=== PATIENT | female | born 1985 | race Two or more races ===

== ENCOUNTER 2024-08-13 10:17 | Outpatient (AMB) | payer OTHER, SELFPAY ==
--- NOTE | 2024-08-13 10:25 | MHC.OFFWIV ---
Intake Vital Signs 08/13/24 10:30 Height 5 ft 5 in Weight 185 lb 8 oz BMI 30.9 BP 138/78 Blood Pressure Location Rt brachial Position Sitting Respiration 14 Pulse 61 Pulse Source Pulse Oximeter Pulse Oximetry (%) 100 Oxygen Delivery Method Room Air Intake Visit Reasons: Pain all over the left side of body Intake Note: Patient complaining of pain on left side of the body and pin and needles all over left side, patient also complaining of the pain radiating to the back Nursing Educator Required: No Allergies No Known Allergies Allergy (Verified 08/13/24 10:50) Medication List - Last Reconciled 08/13/24 by DI Coleman No Known Home Meds Do you need a note to return to daycare/school/sports/work: No HPI HPI Comments History of Present Illness Details History of Present Illness The patient is a 39-year-old female presenting with left-sided body pain, described as pins and needles, accompanied by back pain. The symptoms began approximately four days prior to the visit with no identifiable incident or trauma. The pain is primarily on the left side, spreading to the upper body and sometimes affecting the arm, extending to the face and left lower back. The pain occurs intermittently and tends to start after activities such as waking up and moving around. The patient reports no prior injuries, accidents, or recent illnesses preceding the onset of pain. She has not taken any medication for these symptoms apart from Tylenol, which has not alleviated the discomfort. There is no reported smoking, use of control, recent travel, or exposure to ticks or insects. The patient lacks a primary care provider and has been without one for an extended period. Exam Awake alert NAD PERRLA, EOMI Neurovasc intact No spinal or paraspinal tenderness Pain w/ palp over L anterior chest proximal to axilla Left arm neurovasc intact Plan - Order x-rays for the chest, neck, and low back to investigate potential musculoskeletal causes for the symptoms. - Establish care with a primary care provider within two weeks for further evaluation and management. - Provide patient with instructions for obtaining outpatient x-rays and ensure records are available at the follow-up appointment. Will call w xray results and RX meds as appropriate Patient was informed and verbally consented to the use of an ambient scribe for clinic note documentation during this visit. This note is constructed using voice recognition software. While every effort has been made to ensure accuracy in distribution clerk, still errors may have been included Sometimes, these errors may affect the content or meaning of the given sentence . Total time spent caring for the patient today was 30 minutes. This includes time spent before the visit reviewing the chart, time spent during the visit, and time spent after the visit on documentation Physical Exam Vital Signs: Last Vital Signs Pulse 61 08/13/24 10:30 Resp 14 08/13/24 10:30 BP 138/78 08/13/24 10:30 Pulse Ox 100 08/13/24 10:30 Oxygen Delivery Method Room Air 08/13/24 10:30 BMI result Body Mass Index 30.9 Assessment & Plan Assessment & Plan (1) Neck pain: Code(s): M54.2 - Cervicalgia (2) Arm paresthesia, left: Code(s): R20.2 - Paresthesia of skin (3) Costochondral chest pain: Code(s): R07.89 - Other chest pain (4) Low back pain: Code(s): M54.50 - Low back pain, unspecified Qualifiers: Chronicity: acute Back pain laterality: left Sciatica presence: without sciatica Qualified Code(s): M54.50 - Low back pain, unspecified Plan . Orders: Orders XR cervical spine 2V Today M54.2 - Cervicalgia, M54.50 - Low back pain, unspecified, R07.89 - Other chest pain, R20.2 - Paresthesia of skin XR chest 2V Today M54.2 - Cervicalgia, M54.50 - Low back pain, unspecified, R07.89 - Other chest pain, R20.2 - Paresthesia of skin Patient Instructions: [address] [place] [address] Outpatient Xray Coding Level of Care Code Est Pt Level 4 (94071) Diagnoses Neck pain M54.2 Arm paresthesia, left R20.2 Costochondral chest pain R07.89 Acute left-sided low back pain without sciatica M54.50 Chronicity: acute Back pain laterality: left Sciatica presence: without sciatica
[2024-08-13 10:30] VITALS: BP 138/78; PULSE 61; RESP 14; O2SAT 100; BMI 30.9
== END 2024-08-13 11:02 | disposition home or self-care (01) ==
PROVIDERS: PCP Family Medicine; Visit Provider Nurse Practitioner Family
DX: M54.2 Cervicalgia (principal); R20.2 Paresthesia of skin; R07.89 Other chest pain; M54.50 Low back pain, unspecified

== ENCOUNTER 2024-08-13 10:17 | Outpatient (REF) | payer OTHER, SELFPAY ==
--- NOTE | ~2024-08-13 | XR_ITS ---
Examination: Lumbar spine, cervical spine and chest x-ray. CLINICAL INDICATION: Low back pain, neck pain and chest pain. COMPARISON: None. FINDINGS: LUMBAR SPINE 3 VIEWS: There is maintained lumbar lordosis. The vertebral heights, alignment and disc heights are normal. No visible acute fracture, dislocation or subluxation seen. The SI joints are symmetrical and normal. The soft tissues are normal. CERVICAL SPINE 2 VIEWS: There is mild straightening of cervical lordosis. The vertebral heights, alignment and disc heights are normal. No visible acute fracture, dislocation or subluxation seen. The prevertebral and paravertebral soft tissues are normal. CHEST 2 VIEWS: The lungs are expanded and clear of acute pneumonic process. The heart size and pulmonary vascularity is normal. No gross bony abnormality seen. XR/XR lumbar spine 2-3V IMPRESSION: Unremarkable lumbar spine exam. Mild straightening of cervical lordosis likely spasm. Otherwise unremarkable cervical spine exam. Unremarkable chest exam. Electronically signed by: Aldair Lloyd MD 08/13/2024 12:34 PM [facility]
--- NOTE | ~2024-08-13 | XR_ITS ---
Examination: Lumbar spine, cervical spine and chest x-ray. CLINICAL INDICATION: Low back pain, neck pain and chest pain. COMPARISON: None. FINDINGS: LUMBAR SPINE 3 VIEWS: There is maintained lumbar lordosis. The vertebral heights, alignment and disc heights are normal. No visible acute fracture, dislocation or subluxation seen. The SI joints are symmetrical and normal. The soft tissues are normal. CERVICAL SPINE 2 VIEWS: There is mild straightening of cervical lordosis. The vertebral heights, alignment and disc heights are normal. No visible acute fracture, dislocation or subluxation seen. The prevertebral and paravertebral soft tissues are normal. CHEST 2 VIEWS: The lungs are expanded and clear of acute pneumonic process. The heart size and pulmonary vascularity is normal. No gross bony abnormality seen. XR/XR chest 2V IMPRESSION: Unremarkable lumbar spine exam. Mild straightening of cervical lordosis likely spasm. Otherwise unremarkable cervical spine exam. Unremarkable chest exam. Electronically signed by: Aldair Lloyd MD 08/13/2024 12:34 PM [facility]
--- NOTE | ~2024-08-13 | XR_ITS ---
Examination: Lumbar spine, cervical spine and chest x-ray. CLINICAL INDICATION: Low back pain, neck pain and chest pain. COMPARISON: None. FINDINGS: LUMBAR SPINE 3 VIEWS: There is maintained lumbar lordosis. The vertebral heights, alignment and disc heights are normal. No visible acute fracture, dislocation or subluxation seen. The SI joints are symmetrical and normal. The soft tissues are normal. CERVICAL SPINE 2 VIEWS: There is mild straightening of cervical lordosis. The vertebral heights, alignment and disc heights are normal. No visible acute fracture, dislocation or subluxation seen. The prevertebral and paravertebral soft tissues are normal. CHEST 2 VIEWS: The lungs are expanded and clear of acute pneumonic process. The heart size and pulmonary vascularity is normal. No gross bony abnormality seen. XR/XR cervical spine 2V IMPRESSION: Unremarkable lumbar spine exam. Mild straightening of cervical lordosis likely spasm. Otherwise unremarkable cervical spine exam. Unremarkable chest exam. Electronically signed by: Aldair Lloyd MD 08/13/2024 12:34 PM [facility]
== END 2024-08-13 10:18 | disposition home or self-care (01) ==
LOC: HO.HMGCX 10:17
PROVIDERS: PCP Family Medicine; Visit Provider Nurse Practitioner Family
DX: M54.50 Low back pain, unspecified (principal); M54.2 Cervicalgia; R20.2 Paresthesia of skin; R07.89 Other chest pain
CPT/HCPCS: 71046; 72040; 72100; 99212

== ENCOUNTER → 2024-08-13 11:48 | Outpatient (BNV) | payer OTHER, SELFPAY | PROVIDERS: PCP Family Medicine; Visit Provider Radiology Diagnostic Radiology | DX: M54.2 Cervicalgia (principal); M54.9 Dorsalgia, unspecified; R07.9 Chest pain, unspecified | CPT/HCPCS: 71046; 72040; 72100 ==

== ENCOUNTER 2024-08-23 11:04 | Outpatient (AMB) | payer OTHER, SELFPAY ==
--- NOTE | 2024-08-23 11:08 | MHC.PC.OV ---
Vital Signs 08/23/24 11:15 Height 5 ft 5 in Weight 186 lb 6 oz BMI 31.0 BP 135/79 Blood Pressure Location Rt brachial Position Sitting Respiration 16 Pulse 84 Pulse Source Pulse Oximeter Temp 98.1 F Temp Source Oral Pulse Oximetry (%) 99 Oxygen Delivery Method Room Air Intake Visit Reasons: est care/review workup for parasthesia Intake Note: patient here to establish care Health Care Legal Assistant Required: Yes Health Care Legal Assistant Language: Director Of Procurement Name: patient refused Accompanied by: daughter Is last menstrual period known: Yes Last menstrual period: 07/28/24 Post menopausal: No Patient : No Allergies No Known Allergies Allergy (Verified 08/23/24 11:11) Tobacco use date assessed: 08/23/24 Dental Screening Dental Screen Date: 08/23/24 Did you have a dental visit in the last 12 months?: No Did you have a dental problem in the last 6 months where you did not have access to dental care?: No Was dental information given to patient?: No HPI HPI Comments History of Present Illness Details This is a 39-year-old female with no significant past medical history presenting for re-evaluation of paresthesias. She is accompanied by her daughter. She declined an learning support specialist. They both prefer that her daughter interpret, but the patient speaks and understands a lot of Kiswahili. She presented to the walk-in clinic on 08/13/2024 with concerns of left-sided body pain described as pins and needles accompanied by back pain. The symptoms began approximately 4 days prior to the onset of that visit with no identifiable incident or trauma. Symptoms were described as primarily on the left side spreading to the upper body and sometimes affecting the head and face. The patient reported no prior injuries, accidents or recent illnesses preceding the onset of symptoms. She had not tried any medications for symptoms. She reported lacking primary care for an extended period of time before presenting for evaluation. She had x-rays of the chest, neck and lower back which were essentially unremarkable. Her symptoms are stable. She endorses again today paresthesias, numbness and discomfort in the left arm, left collarbone area and chest, left upper back, left lower back, left buttock and left upper thigh as well as the left side of the face and head. She also feels like her muscles are fatigued when she is trying to hold something out in front of her. She does not feel weak like she is going to drop something. She was put on a trial of diclofenac and Zanaflex which helped a little with the pain in her neck. She denies known family history of autoimmune disease. She does not take any supplements. She drinks alcohol socially. No illicit drug use or smoking. She has 2 dogs at home. No known tick bites. She has been under stress recently. 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 She has no exposure to toxins at work. ROS: Constitutional: No unexplained weight loss, fever, chills, fatigue or night sweats. Eyes: No vision changes, blurry vision, double vision, eye pain, eye redness, eye discharge. ENT: No hearing loss, sneezing, congestion, runny nose or sore throat. No sinus pain. Respiratory: No shortness of breath, cough or sputum production. Cardiovascular: No palpitations or pedal edema. No exertional chest pain. Gastrointestinal: No anorexia, nausea, vomiting or diarrhea. No abdominal pain or blood in stool. Genitourinary: No dysuria, hematuria, urinary frequency. Neurologic: No dizziness, syncope, unilateral weakness, ataxia. No syncopal episodes. No seizures or tremors. See HPI. Musculoskeletal: No joint swelling/ redness. Hematologic/Lymphatics: No bleeding or bruising. No painful lymph nodes. Skin: No rash or itching. Endocrine: No cold or heat intolerance. No polyuria or polydipsia. Psychiatric: No depression. Physical exam: Constitutional: Alert, in no distress. Head: Normocephalic. Eyes: Pupils are equal, round and reactive to light. Extraocular muscles intact. Ear, Nose and Throat: Canals clear. TMs normal. Normal nasal mucosa. No nasal discharge. No oral lesions. Neck: Supple, Full range of motion. No lymphadenopathy. No palpable thyroid masses. Respiratory: Clear to auscultation. Cardiovascular: S1 S2 regular. No murmurs. Gastrointestinal: Abdomen soft, non-tender, non-distended. Normal bowel sounds. No palpable masses. Neurologic:?Alert and oriented x 3, no focal deficits observed, CN 2-12 intact, [id number] normal, sensation equal and symmetric, strength UE and LE 5/5 bilaterally, reflexes equal and symmetric.? Normal gait.? Patient able to heel walk, toe walk and walk heel-to-toe across the floor.? No pronator drift.? Positive Romberg (patient swaying [id number]). Skin: No rashes or lesions. Musculoskeletal: No gross deformities. Normal range of motion. Extremities: Warm and well perfused. No clubbing, cyanosis or edema. 3+ peripheral pulses bilaterally. 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 1. Little interest or pleasure in doing things: not at all 2. Feeling down, depressed, or hopeless: not at all 3. Trouble falling or staying asleep, or sleeping too much: not at all 4. Feeling tired or having little energy: not at all 5. Poor appetite or overeating: not at all 6. Feeling bad about yourself - or that you are a failure or have let yourself or your family down: not at all 7. Trouble concentrating on things, such as reading the newspaper or watching television: not at all 8. Moving or speaking so slowly that other people could have noticed. Or the opposite - being so fidgety or restless that you have been moving around a lot more than usual: not at all 9. Thoughts that you would be better off or of hurting yourself in some way: not at all Total score: 0 Depression Screening Interpretation: Negative Depression Screening Done: Yes 41408 - PHQ-9 Billing: Yes Source: Developed by Drs. Terrance Newton, Adeline Park, Erick Ramírez and colleagues, with an educational gely from [employer]. Thrive Questionnaire Date Thrive assessed: 08/23/24 I am a: Patient What is your living situation today?: I have a steady place to live Within the past 12 months, did the food you bought not last and you didn't have the money to get more?: Never true Within the past 12 months, did you worry whether your food would run out before you got money to buy more?: Never true Do you have trouble paying for medicines?: No Do you have trouble getting transportation to medical appointments?: No Do you have trouble paying your heating and electricity bill?: No Do you have trouble taking care of your child, family member or friend?: No Do you have trouble with day-to-day activities such as bathing, preparing meals, shopping, managing finances, etc.?: No Are you currently unemployed and looking for a job?: No Are you interested in more education?: I choose not to answer this question Please select the resources that you would like help with: None Currently or been in a relationship where the following occur: No concerns reported THRIVE Score: 0 AUDIT C Alcohol Use Questionnaire (AUDIT-C) 1. How often do you have a drink containing alcohol?: 2-4 times a month 2. How many drinks containing alcohol do you have on a typical day when you are drinking?: 1 or 2 3. How often do you have six or more drinks on one occasion?: Never Total Score: 2 RADHA-7 AMB Questionnaire RADHA-7 Date RADHA - 7 assessed: 08/23/24 Feeling nervous, anxious, or on edge: 0 = Not at all Not being able to stop or control worryin = Not at all Worrying too much about different things: 1 = Several days Trouble relaxin = Not at all Being so restless that it is hard to sit still: 0 = Not at all Becoming easily annoyed or irritable: 0 = Not at all Feeling afraid as if something awful might happen: 0 = Not at all Total RADHA-7 score (0-4 normal; 5-9 mild; 10-14 moderate; 15-21 severe): 1 Source: Developed by Drs. Terrance Newton, Adeline Park, Erick Ramírez and colleagues, with an educational gely from [employer]. RADHA-7 Assessment Billing RADHA-7 Assessment Tool: RADHA-7 Assessment 62907 Physical exam (Primary Care) Vital Signs: Last Vital Signs Temp 98.1 F 08/23/24 11:15 Pulse 84 08/23/24 11:15 Resp 16 08/23/24 11:15 BP 135/79 08/23/24 11:15 Pulse Ox 99 08/23/24 11:15 Oxygen Delivery Method Room Air 08/23/24 11:15 BMI result Body Mass Index 31.0 Tobacco/Smoking Status: Tobacco use Status Tobacco use date assessed 08/23/24 08/23/24 11:14 Patient Tobacco Use Status Never used Tobacco 08/23/24 11:14 e-Cigarette/Vaping Use Never Used 08/23/24 11:14 PHQ-9: PHQ-9 Score PHQ-9: Total score 0 08/23/24 11:32 Depression Screening Interpretation: Negative Thrive Assessment: Date of Thrive Assessment Date Thrive assessed 08/23/24 08/23/24 11:14 Currently or been in a relationship where the following occur: No concerns reported Office Procedures EKG Details: EKG shows normal sinus rhythm, minimal voltage criteria for LVH versus normal variant, ventricular rate of 80 beats per minute. 09686-[id number], Complete Coding Level of Care Code Est Pt Level 5 (27454) Complex EM visit Add On G2211 Diagnoses Positive Romberg test R29.818 Numbness and tingling R20.0; R20.2 Chest discomfort R07.89 CPT Codes EKG - CPT: 52742-Xmejgtrqxmhgnblaz, Complete ([id number]) Additional Codes RADHA-7 Assessment Billing - RADHA-7 Assessment Tool: RADHA-7 Assessment 17156 ([id number]) PHQ-9 - 44368 - PHQ-9 Billing: Yes ([id number]) Time Spent (min) 50 Comment Chart review, direct patient care, completing documentation Assessment & Plan Assessment & Plan (1) Positive Romberg test: Code(s): R29.818 - Other symptoms and signs involving the nervous system Category: Medical (2) Numbness and tingling: Code(s): R20.0 - Anesthesia of skin; R20.2 - Paresthesia of skin Category: Medical (3) Chest discomfort: Code(s): R07.89 - Other chest pain Category: Medical Plan In summary this is a 39-year-old female presenting with ongoing left-sided paresthesias and numbness and discomfort without preceding incident or trauma. EKG done today due to chest discomfort. It is nonischemic. Symptoms are nonexertional, and she is not hypoxic. Further cardiac workup is deferred at this time given low likelihood of cardiac etiology based on presentation and diagnostics. Differential includes MS, brain tumor, Lyme disease, electrolyte disturbance, fibromyalgia. Less likely symptoms could be residual deficits from a CVA, but her neurologic exam is normal aside from the mildly positive Romberg. We will check an urgent MRI without and with contrast in addition to extensive labs which were ordered today. She will schedule a short term follow up appointment with me. Warning signs warranting ER evaluation reviewed with the patient and her daughter. Orders: Orders AMB EKG-In Office Today R07.89 - Other chest pain Comprehensive Met. Panel Today M54.50 - Low back pain, unspecified, R07.89 - Other chest pain, R20.0 - Anesthesia of skin, R20.2 - Paresthesia of skin Urine Culture Today M54.50 - Low back pain, unspecified, R07.89 - Other chest pain, R20.0 - Anesthesia of skin, R20.2 - Paresthesia of skin, R39.9 - Unspecified symptoms and signs involving the genitourinary system Vitamin B12 and Folate Today M54.50 - Low back pain, unspecified, R07.89 - Other chest pain, R20.0 - Anesthesia of skin, R20.2 - Paresthesia of skin Lyme IgG/IgM w/reflex to WB Today M54.50 - Low back pain, unspecified, R07.89 - Other chest pain, R20.0 - Anesthesia of skin, R20.2 - Paresthesia of skin ARNOL Reflex Titer and Pattern Today M54.50 - Low back pain, unspecified, R07.89 - Other chest pain, R20.0 - Anesthesia of skin, R20.2 - Paresthesia of skin MR head/brain wo/w con Today R20.0 - Anesthesia of skin, R20.2 - Paresthesia of skin, R29.818 - Other symptoms and signs involving the nervous system Complete Blood Count Auto Diff Today M54.50 - Low back pain, unspecified, R07.89 - Other chest pain, R20.0 - Anesthesia of skin, R20.2 - Paresthesia of skin TSH reflex Free T4 Today M54.50 - Low back pain, unspecified, R07.89 - Other chest pain, R20.0 - Anesthesia of skin, R20.2 - Paresthesia of skin UA w Microscopic Today M54.50 - Low back pain, unspecified, R07.89 - Other chest pain, R20.0 - Anesthesia of skin, R20.2 - Paresthesia of skin, R39.9 - Unspecified symptoms and signs involving the genitourinary system Magnesium Today M54.50 - Low back pain, unspecified, R07.89 - Other chest pain, R20.0 - Anesthesia of skin, R20.2 - Paresthesia of skin Erythrocyte Sedimentation Rate Today M54.50 - Low back pain, unspecified, R07.89 - Other chest pain, R20.0 - Anesthesia of skin, R20.2 - Paresthesia of skin Rheumatoid Factor Today M54.50 - Low back pain, unspecified, R07.89 - Other chest pain, R20.0 - Anesthesia of skin, R20.2 - Paresthesia of skin Vitamin D 1,25 dihydroxy Today M54.50 - Low back pain, unspecified, R07.89 - Other chest pain, R20.0 - Anesthesia of skin, R20.2 - Paresthesia of skin
[2024-08-23 11:15] VITALS: BP 135/79; PULSE 84; RESP 16; TEMP 36.7; O2SAT 99; BMI 31.0
== END 2024-08-23 12:28 | disposition home or self-care (01) ==
PROVIDERS: PCP Family Medicine; Visit Provider Physician Assistant Medical
DX: R29.818 Other symptoms and signs involving the nervous system (principal); R20.0 Anesthesia of skin; R20.2 Paresthesia of skin; R07.89 Other chest pain

== ENCOUNTER → 2024-08-23 11:04 | Outpatient (BNVA) | payer OTHER, SELFPAY | PROVIDERS: PCP Family Medicine; Visit Provider Physician Assistant Medical | DX: R20.0 Anesthesia of skin (principal); R20.2 Paresthesia of skin; R07.89 Other chest pain; R29.818 Other symptoms and signs involving the nervous system | CPT/HCPCS: 93005; 96127; 99212 ==

== ENCOUNTER 2024-08-23 12:50 | Outpatient (REF) | payer OTHER, SELFPAY ==
[2024-08-23 14:05] LABS: MANUAL DIFF FLAG NO
[2024-08-23 14:15] LABS: Basophils Percent Auto 0.6 % (0-2); Eosinophils Absolute Auto 0.1 X10*3/uL (0.0-0.4); Eosinophils Percent Auto 1.9 % (0-4); Hematocrit 37.7 % (37.0-47.0); Hemoglobin 12.4 g/dl (12.0-16.0); Imm Gran Abs Auto 0.01 X10*3/uL (0.00-0.03); Imm Gran Pct Auto 0.2 % (0.0-0.4); Lymphocytes Absolute Auto 1.8 X10*3/uL (1.2-4.9); Lymphocytes Percent Auto 28.4 % (20-40); Mean Corpuscular HGB Conc 32.9 g/dl (31.0-35.0); Mean Corpuscular Hemoglobin 29.7 pg (27.0-33.0); Mean Corpuscular Volume 90.2 fL (80.0-98.0); Mean Platelet Volume 10.4 fL (9.4-12.3); Monocytes Absolute Auto 0.7 X10*3/uL (0.1-1.2); Monocytes Percent Auto 11.1 % (2-11); Neutrophils Absolute Auto 3.6 x10*3/uL (2.0-8.3); Neutrophils Percent Auto 57.8 % (45-73); Platelet Count 332 X10*3/uL (160-400); Red Blood Count 4.18 X10*6/uL (4.20-5.50); Red Cell Distribution Width 14.4 % (11.0-16.0); White Blood Count 6.2 X10*3/uL (4.8-10.8)
[2024-08-23 14:24] LABS: Appearance Urine Cloudy; Color Urine Dark Yellow; Glucose Urine UA Negative (Negative); Leukocyte Esterase Urine Trace (Negative); Nitrite Urine Negative (Negative); PH 5.5 (5.0-9.0); Specific Gravity - Urine >= 1.030 (1.005-1.025); UMIC TRIGGER UA YES; Urine Blood Negative (Negative); Urine Ketones Negative (Negative); Urine Protein Negative (Neg-Trace)
[2024-08-23 14:36] LABS: Bacteria Urine 3+ (None Seen); Hyaline Casts Urine 0-2 /LPF (0-2); WBC Urine 0-5 /HPF (0-5)
[2024-08-23 14:44] LABS: Alanine Aminotransferase 20 U/L (0-31); Albumin Level 4.2 g/dL (3.5-5.0); Alkaline Phosphatase 62 U/L (39-117); Anion Gap 9 (12-20); Aspartate Amino Transferase 18 U/L (5-31); Bilirubin Total 0.5 mg/dL (0.0-1.0); Blood Urea Nitrogen 12 mg/dL (9-16); Calcium 9.5 mg/dL (8.4-10.2); Carbon Dioxide 25 mmol/L (22-29); Chloride 111 mmol/L (96-108); Estimated Glomerular Filt Rate > 60; Glucose Random 93 mg/dL (60-115); Magnesium 2.1 mg/dL (1.6-2.6); Potassium 3.7 mmol/L (3.3-5.1); Sodium 141 mmol/L (135-145); Total Protein 7.7 g/dL (6.5-8.0)
[2024-08-23 14:51] LABS: Erythrocyte Sedimentation Rate 12 MM/HR (0-20)
[2024-08-23 14:54] LABS: Rheumatoid Factor < 13.0 IU/mL (<15.0); TSH reflex Free T4 0.99 uIU/mL (0.32-4.0)
[2024-08-23 15:09] LABS: Folate 12.8 ng/mL (> or = 4.0); Vitamin B12 622 pg/mL (200-900)
[2024-08-24 18:13] LABS: Lyme Abs Screen <0.90 index
[2024-08-27 07:33] LABS: Anti Nuclear Antibody Screen NEGATIVE (NEGATIVE)
[2024-08-27 16:23] LABS: VITAMIN D (1,25 OH) D3 45 pg/mL; Vit D (1,25-Dihydroxy) Total 45 pg/mL (18-72); Vitamin D (1,25 OH) D2 <8 pg/mL
== END 2024-08-23 12:51 | disposition home or self-care (01) ==
LOC: HO.WFDLDS 12:50
PROVIDERS: Visit Provider Physician Assistant Medical
DX: R39.9 Unspecified symptoms and signs involving the genitourinary system (principal); R07.89 Other chest pain; M54.50 Low back pain, unspecified; R20.0 Anesthesia of skin; R20.2 Paresthesia of skin
CPT/HCPCS: 36415; 80053; 81001; 82607; 82652; 82746; 83735; 84443; 85025; 85652; 86038; 86431; 86617; 86618; 87086

== ENCOUNTER → 2024-09-24 15:07 | Outpatient (BNVA) | payer OTHER, SELFPAY | PROVIDERS: PCP Physician Assistant Medical; Visit Provider Physician Assistant Medical | DX: R20.2 Paresthesia of skin (principal); R20.0 Anesthesia of skin; R29.818 Other symptoms and signs involving the nervous system; R07.89 Other chest pain | CPT/HCPCS: 99212 ==

== ENCOUNTER → 2024-09-24 15:56 | Outpatient (AMB) | payer OTHER, SELFPAY ==
[2024-09-24 15:21] VITALS: BP 130/82; PULSE 83; O2SAT 98; BMI 31.2
--- NOTE | 2024-09-24 15:21 | MHC.PC.OV ---
Vital Signs 09/24/24 15:21 Height 5 ft 5 in Weight 187 lb 4 oz BMI 31.2 BP 130/82 Blood Pressure Location Rt brachial Position Sitting Pulse 83 Pulse Source Pulse Oximeter Pulse Oximetry (%) 98 Oxygen Delivery Method Room Air Intake Visit Reasons: follow up paresthesias Allergies No Known Allergies Allergy (Verified 09/24/24 15:27) Tobacco use date assessed: 09/24/24 Dental Screening Dental Screen Date: 09/24/24 Did you have a dental visit in the last 12 months?: Yes Did you have a dental problem in the last 6 months where you did not have access to dental care?: No Was dental information given to patient?: Patient has dentist HPI HPI Comments History of Present Illness Details This is a 39-year-old female with no significant past medical history presenting for re-evaluation of paresthesias. She is accompanied by her daughter. She declined an educational interpreter. They both prefer that her daughter interpret, but the patient speaks and understands a lot of Vietnamese. She presented to the walk-in clinic on 08/13/2024 with concerns of left-sided body pain described as pins and needles accompanied by back pain. The symptoms began approximately 4 days prior to the onset of that visit with no identifiable incident or trauma. Symptoms were described as primarily on the left side spreading to the upper body and sometimes affecting the head and face. The patient reported no prior injuries, accidents or recent illnesses preceding the onset of symptoms. She had not tried any medications for symptoms. She reported lacking primary care for an extended period of time before presenting for evaluation. She had x-rays of the chest, neck and lower back which were essentially unremarkable aside from mild straightening of the cervical lordosis. Her symptoms are stable. She endorses again today paresthesias, numbness and discomfort in the left arm, left collarbone area and chest, left upper back, left lower back, left buttock and left upper thigh as well as the left side of the face and head. She also feels like her muscles are fatigued when she is trying to hold something out in front of her. She does not feel weak like she is going to drop something. She was put on a trial of diclofenac and Zanaflex which helped a little with the pain in her neck. She denies known family history of autoimmune disease. She does not take any supplements. She drinks alcohol socially. No illicit drug use or smoking. She has 2 dogs at home. No known tick bites. She has been under stress recently. I asked if she has a history of anxiety or is talked to a therapist. Patient says she has gone through times where she has been very anxious and stressed. Patient says she does not believe in speaking with a therapist though she does consider that stress may be contributing to her symptoms. 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 She has no exposure to toxins at work. She has an MRI of the head with and without contrast scheduled at [facility] on 10/08/2024. On neurologic exam her Romberg test was mildly positive with swaying from side to side. EKG was nonischemic. Labs including CBC with differential, CMP, vitamin B12, vitamin-D, folic acid, TSH, rheumatoid factor, ARNOL and Lyme negative/normal. She had trace leuks and 3-5 red blood cells in her urine explained by having menses at that time. ROS: Constitutional: No unexplained weight loss, fever, chills, fatigue or night sweats. Eyes: No vision changes, blurry vision, double vision, eye pain, eye redness, eye discharge. ENT: No hearing loss, sneezing, congestion, runny nose or sore throat. No sinus pain. Respiratory: No shortness of breath, cough or sputum production. Cardiovascular: No palpitations or pedal edema. No exertional chest pain. Gastrointestinal: No anorexia, nausea, vomiting or diarrhea. No abdominal pain or blood in stool. Genitourinary: No dysuria, hematuria, urinary frequency. Neurologic: No dizziness, syncope, unilateral weakness, ataxia. No syncopal episodes. No seizures or tremors. See HPI. Musculoskeletal: No joint swelling/redness. Hematologic/Lymphatics: No bleeding or bruising. No painful lymph nodes. Skin: No rash or itching. Endocrine: No cold or heat intolerance. No polyuria or polydipsia. Psychiatric: No depression. Physical exam: Constitutional: Alert, in no distress. Head: Normocephalic. Neck: Supple, Full range of motion. No lymphadenopathy. No palpable thyroid masses. Respiratory: Clear to auscultation. Cardiovascular: S1 S2 regular. No murmurs. Musculoskeletal: No gross deformities. Normal range of motion. Strength 5/5 bilaterally. Extremities: Warm and well perfused. No clubbing, cyanosis or edema. 3+ peripheral pulses bilaterally. 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 [employer] Current occupational exposures/hazards: No Cognitive needs: No Hearing needs: No Vision needs: No Questionnaire Thrive Questionnaire Date Thrive assessed: 08/23/24 I am a: Patient What is your living situation today?: I have a steady place to live Within the past 12 months, did the food you bought not last and you didn't have the money to get more?: Never true Within the past 12 months, did you worry whether your food would run out before you got money to buy more?: Never true Do you have trouble paying for medicines?: No Do you have trouble getting transportation to medical appointments?: No Do you have trouble paying your heating and electricity bill?: No Do you have trouble taking care of your child, family member or friend?: No Do you have trouble with day-to-day activities such as bathing, preparing meals, shopping, managing finances, etc.?: No Are you currently unemployed and looking for a job?: No Are you interested in more education?: I choose not to answer this question Please select the resources that you would like help with: None Currently or been in a relationship where the following occur: No concerns reported THRIVE Score: 0 RADHA-7 AMB Questionnaire RADHA-7 Date RADHA - 7 assessed: 08/23/24 Source: Developed by Drs. Terrance Newton, Adeline Park, Erick Ramírez and colleagues, with an educational gely from [employer]. Physical exam (Primary Care) Vital Signs: Last Vital Signs Pulse 83 09/24/24 15:21 BP 130/82 09/24/24 15:21 Pulse Ox 98 09/24/24 15:21 Oxygen Delivery Method Room Air 09/24/24 15:21 BMI result Body Mass Index 31.2 Tobacco/Smoking Status: Tobacco use Status Tobacco use date assessed 09/24/24 09/24/24 15:28 Patient Tobacco Use Status Never used Tobacco 09/24/24 15:22 e-Cigarette/Vaping Use Never Used 09/24/24 15:22 Thrive Assessment: Date of Thrive Assessment Date Thrive assessed 08/23/24 09/24/24 15:22 Currently or been in a relationship where the following occur: No concerns reported Coding Level of Care Code Est Pt Level 4 (45422) Complex EM visit Add On G2211 Diagnoses Positive Romberg test R29.818 Numbness and tingling R20.0; R20.2 Chest discomfort R07.89 Assessment & Plan Assessment & Plan (1) Positive Romberg test: Code(s): R29.818 - Other symptoms and signs involving the nervous system Category: Medical (2) Numbness and tingling: Code(s): R20.0 - Anesthesia of skin; R20.2 - Paresthesia of skin Category: Medical (3) Chest discomfort: Code(s): R07.89 - Other chest pain Category: Medical Plan In summary this is a 39-year-old female presenting with ongoing left-sided paresthesias and numbness and discomfort without preceding incident or trauma. We discussed stress and anxiety could have a physical manifestation like this, but MS and brain tumor also considered. Less likely residual effects from a CVA. She does not have any progression of symptoms since her last visit. She will proceed with MRI of the head and brain with and without contrast that is scheduled this month. Follow up appointment is scheduled to review results. Warning signs warranting ER evaluation reviewed with the patient and her daughter. We discussed referral to Neurology pending results as well as referral to behavioral health services and/or trial of medication for anxiety.
== END | disposition home or self-care (01) ==
PROVIDERS: PCP Physician Assistant Medical; Visit Provider Physician Assistant Medical
DX: R29.818 Other symptoms and signs involving the nervous system (principal); R20.0 Anesthesia of skin; R20.2 Paresthesia of skin; R07.89 Other chest pain

== ENCOUNTER 2024-10-15 15:20 | Outpatient (AMB) | payer OTHER, SELFPAY ==
--- NOTE | 2024-10-15 15:49 | A.OFFPC_ITS ---
Vital Signs 10/15/24 15:52 Height 5 ft 5 in Weight 186 lb 4 oz BMI 31.0 BP 114/68 Blood Pressure Location Lt brachial Position Sitting Respiration 12 Pulse 81 Pulse Source Pulse Oximeter Pulse Oximetry (%) 97 Oxygen Delivery Method Room Air Intake Visit Reasons: review MRI result Intake Note: MRI results Black Oxide Coating Equipment Tender Required: No Black Oxide Coating Equipment Tender Name: Patient declined Accompanied by: Daughter Allergies No Known Allergies Allergy (Verified 10/15/24 15:51) Tobacco use date assessed: 10/15/24 Dental Screening Dental Screen Date: 09/24/24 HPI HPI Comments History of Present Illness Details This is a 39-year-old female with no significant past medical history presenting for re-evaluation of paresthesias. She is accompanied by her daughter. She declined an principal military analyst. They both prefer that her daughter interpret, but the patient speaks and understands a lot of Armenian. She presented to the walk-in clinic on 08/13/2024 with concerns of left-sided body pain described as pins and needles accompanied by back pain. The symptoms began approximately 4 days prior to the onset of that visit with no identifiable incident or trauma. Symptoms were described as primarily on the left side spreading to the upper body and sometimes affecting the head and face. The patient reported no prior injuries, accidents or recent illnesses preceding the onset of symptoms. She had not tried any medications for symptoms. She reported lacking primary care for an extended period of time before presenting for evaluation. She had x-rays of the chest, neck and lower back which were essentially unremarkable aside from mild straightening of the cervical lordosis. When I saw her she endorsed paresthesias, numbness and discomfort in the left arm, left collarbone area and chest, left upper back, left lower back, left buttock and left upper thigh as well as the left side of the face and head. She was put on a trial of diclofenac and Zanaflex which helped a little with the pain in her neck. She denies known family history of autoimmune disease. She does not take any supplements. She drinks alcohol socially. No illicit drug use or smoking. She has 2 dogs at home. No known tick bites. EKG was nonischemic. Labs including CBC with differential, CMP, vitamin B12, vitamin-D, folic acid, TSH, rheumatoid factor, ARNOL and Lyme negative/normal. She had trace leuks and 3-5 red blood cells in her urine explained by having menses at that time. She had an MRI of the brain without contrast on 10/08/2024 which demonstrated no acute abnormalities. There was polypoid mucosal thickening seen in the left maxillary sinus. The MRI was otherwise normal. We discussed the level of stress she has been under recently. She has endorsed anxiety. She told me that she did not believe in speaking with a therapist, but she has been considering this. She is changing her mind because her stress level decreased recently, and her symptoms are feeling better so now she thinks it may be related. She is still concerned about the symptoms in the left arm and chest. They are not exertional. She denies shortness of breath, dizziness, syncope. She is a nonsmoker. 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 She has no exposure to toxins at work. When I discussed the left maxillary sinus disease on her MRI they showed me a video of her snoring very loudly. Daughter says that she snores every day, and it wakes up everybody in the house. She does not endorse fatigue or non restorative sleep. ROS: Constitutional: No unexplained weight loss, fever, chills, fatigue or night sweats. Eyes: No vision changes, blurry vision, double vision, eye pain, eye redness, eye discharge. ENT: No hearing loss, sneezing, congestion, runny nose or sore throat. No sinus pain. Respiratory: No shortness of breath, cough or sputum production. Cardiovascular: No palpitations or pedal edema. No exertional chest pain. Gastrointestinal: No anorexia, nausea, vomiting or diarrhea. No abdominal pain or blood in stool. Genitourinary: No dysuria, hematuria, urinary frequency. Neurologic: No dizziness, syncope, unilateral weakness, ataxia. No syncopal episodes. No seizures or tremors. See HPI. Musculoskeletal: No joint swelling/redness. Hematologic/Lymphatics: No bleeding or bruising. No painful lymph nodes. Skin: No rash or itching. Endocrine: No cold or heat intolerance. No polyuria or polydipsia. Psychiatric: No depression. Physical exam: Constitutional: Alert, in no distress. Head: Normocephalic. ENT: Inferior turbinates 2+ bilaterally. No nasal discharge. Sinuses nontender. Canals clear. TMs summers and translucent. No oropharyngeal lesions or erythema. Neck: Supple, Full range of motion. No lymphadenopathy. No palpable thyroid masses. Respiratory: Clear to auscultation. Cardiovascular: S1 S2 regular. No murmurs. Musculoskeletal: No gross deformities. Normal range of motion. Strength 5/5 bilaterally. Extremities: Warm and well perfused. No clubbing, cyanosis or edema. 3+ peripheral pulses bilaterally. 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 [employer] Current occupational exposures/hazards: No Cognitive needs: No Hearing needs: No Vision needs: No Questionnaire Thrive Questionnaire Date Thrive assessed: 10/15/24 I am a: Patient What is your living situation today?: I have a steady place to live Within the past 12 months, did the food you bought not last and you didn't have the money to get more?: Never true Within the past 12 months, did you worry whether your food would run out before you got money to buy more?: Never true Do you have trouble paying for medicines?: No Do you have trouble getting transportation to medical appointments?: No Do you have trouble paying your heating and electricity bill?: No Do you have trouble taking care of your child, family member or friend?: No Do you have trouble with day-to-day activities such as bathing, preparing meals, shopping, managing finances, etc.?: No Are you currently unemployed and looking for a job?: No Are you interested in more education?: I choose not to answer this question Please select the resources that you would like help with: None Currently or been in a relationship where the following occur: No concerns reported THRIVE Score: 0 RADHA-7 AMB Questionnaire RADHA-7 Date RADHA - 7 assessed: 08/23/24 Source: Developed by Adeline Guardado.W. Xavier, Erick Ramírez and colleagues, with an educational gely from [employer]. Physical exam (Primary Care) Vital Signs: Last Vital Signs Pulse 81 10/15/24 15:52 Resp 12 10/15/24 15:52 BP 114/68 10/15/24 15:52 Pulse Ox 97 10/15/24 15:52 Oxygen Delivery Method Room Air 10/15/24 15:52 BMI result Body Mass Index 31.0 Tobacco/Smoking Status: Tobacco use Status Tobacco use date assessed 10/15/24 10/15/24 15:54 Patient Tobacco Use Status Never used Tobacco 10/15/24 15:54 e-Cigarette/Vaping Use Never Used 10/15/24 15:54 Thrive Assessment: Date of Thrive Assessment Date Thrive assessed 10/15/24 10/15/24 16:32 Currently or been in a relationship where the following occur: No concerns reported Coding Level of Care Code Est Pt Level 4 (41685) Complex EM visit Add On G2211 Diagnoses Positive Romberg test R29.818 Numbness and tingling R20.0; R20.2 Chest discomfort R07.89 Sinusitis J32.9 Snoring R06.83 Anxiety F41.9 Assessment & Plan Assessment & Plan (1) Positive Romberg test: Code(s): R29.818 - Other symptoms and signs involving the nervous system Category: Medical (2) Numbness and tingling: Code(s): R20.0 - Anesthesia of skin; R20.2 - Paresthesia of skin Category: Medical (3) Chest discomfort: Code(s): R07.89 - Other chest pain Category: Medical (4) Sinusitis: Code(s): J32.9 - Chronic sinusitis, unspecified Category: Medical (5) Snoring: Code(s): R06.83 - Snoring Category: Medical (6) Anxiety: Code(s): F41.9 - Anxiety disorder, unspecified Category: Medical Plan Her workup thus far has been reassuring. We reviewed her MRI results today. Given prior neurologic exam and symptoms I will refer to Neurology for further evaluation. She continues to endorse anxiety and stress, but she does not want to take medications for it. She is agreeable to a consult with the psychologist to discuss this. Referral placed. We discussed how anxiety and stress can have physical manifestations. We reviewed the importance of hydration, nutrition and adequate sleep. Her chest pain is atypical, but we will proceed with an echocardiogram and stress test out of an abundance of caution. Prior EKG was nonischemic. She will start Nasacort 2 sprays per nostril daily. She can try breathe right strips and avoid sleeping supine. Referred to ENT. Follow up in 10 weeks. Orders: Orders CA echo transthoracic complete 10/15/24 R07.9 - Chest pain, unspecified CA stress test 10/15/24 R07.9 - Chest pain, unspecified Referrals Psychology Referral F41.9 - Anxiety disorder, unspecified Ear/Nose/Throat Referral J32.9 - Chronic sinusitis, unspecified, R06.83 - Snoring Neurology Referral R20.0 - Anesthesia of skin, R20.2 - Paresthesia of skin, R29.818 - Other symptoms and signs involving the nervous system Medications: New triamcinolone acetonide (Nasacort) administer into each nostril 2 sprays intranasal DAILY 16.9 mL 5RF
[2024-10-15 15:52] VITALS: BP 114/68; PULSE 81; RESP 12; O2SAT 97; BMI 31.0
== END 2024-10-15 16:20 | disposition home or self-care (01) ==
PROVIDERS: PCP Physician Assistant Medical; Visit Provider Physician Assistant Medical
DX: R29.818 Other symptoms and signs involving the nervous system (principal); R20.0 Anesthesia of skin; R20.2 Paresthesia of skin; R07.89 Other chest pain; J32.9 Chronic sinusitis, unspecified; R06.83 Snoring; F41.9 Anxiety disorder, unspecified

== ENCOUNTER → 2024-10-15 15:20 | Outpatient (BNVA) | payer OTHER, SELFPAY | PROVIDERS: PCP Physician Assistant Medical; Visit Provider Physician Assistant Medical | DX: R20.0 Anesthesia of skin (principal); R20.2 Paresthesia of skin; R29.818 Other symptoms and signs involving the nervous system; R07.89 Other chest pain; J32.9 Chronic sinusitis, unspecified; R06.83 Snoring; F41.9 Anxiety disorder, unspecified | CPT/HCPCS: 99212 ==

== ENCOUNTER → 2024-11-01 09:00 | Outpatient (REF) | payer OTHER, SELFPAY ==
--- NOTE | 2024-11-01 09:02 | CA_ITS ---
Acquisition Time: 2024-11-01 10:20:19 Total Exercise Time: 00:06:35 Test Indications: CP Medications: SEE H&P Protocol: SAUD Max HR: 157 BPM 86% of Pred: 182 BPM Max BP: 132/82 mmHG Max Work Load: 7.9 METS Exercise Stress Test with exercise 6 mins 345 secs of Saud Protocol, achieving 87% MPHR, with reports of SOB, no chest pain, without any arrythmias, with normotensive response to exercise. Without EKG changes meeting criteria for ischemia. In recovery, breathing returned to baseline. Test reviewed with Dr. Bay. Referred By: Brittany Cole Electronically Signed By: Mark Roger
== END ==
LOC: HO.CARD 09:00
PROVIDERS: PCP Physician Assistant Medical; Visit Provider Physician Assistant Medical
DX: R07.9 Chest pain, unspecified (principal)
CPT/HCPCS: 93017; 93306

== ENCOUNTER → 2024-11-01 09:02 | Outpatient (BNV) | payer OTHER, SELFPAY | PROVIDERS: PCP Physician Assistant Medical | DX: R06.02 Shortness of breath (principal) | CPT/HCPCS: 93016; 93018; 93320; 93350 ==

== ENCOUNTER 2024-11-12 09:49 | Outpatient (AMB) | payer OTHER, SELFPAY ==
[2024-11-12 11:08] VITALS: BP 118/80; PULSE 75; O2SAT 100
--- NOTE | 2024-11-12 11:08 | AM.OFFWIN_ITS ---
Intake Vital Signs 11/12/24 11:08 Weight 188 lb BP 118/80 Blood Pressure Location Rt brachial Position Sitting Pulse 75 Pulse Source Pulse Oximeter Pulse Oximetry (%) 100 Oxygen Delivery Method Room Air Intake Visit Reasons: EP pain on LT back side Intake Note: Patient here for left lower back pain that started today after lifting something heavy. Patient Tobacco Use Status: Never used Tobacco Allergies No Known Allergies Allergy (Verified 11/12/24 11:09) Do you need a note to return to daycare/school/sports/work: Yes HPI HPI Comments History of Present Illness Details History of Present Illness - The patient is a 39-year-old female pr esenting with lower back pain x6 days, not getting better. - Symptoms commenced on Tuesday last k while at work. - The pain is localized to the lower jannette k into left buttock, described as throbbing and dull, without radiating to the extremities. - No history of associated trauma or sig nificant exertion, though the act of lifting a non-heavy object preceded the onset. - Previous management with NSAIDs and to pical patches has been ineffective. - The patient denied any numbness, tingl ing, or loss of bladder/bowel control. - The unchanging severity of discomfort prompted medical consultation. Physical Exam General: Cooperative, healthy appearing, comfortable, no acute distress and well developed Orientation: Patient oriented x3 Limitations: No limitations Head: Normal to inspection Ears: Hearing grossly normal bilaterally Nose: Normal External nose present Face and sinus: Normal facial exam Eyes: Appearance normal, both eyes and all related structures Neck: Normal visual inspection and Yes full ROM Respiratory: Normal respiratory effort and able to speak in complete sentences. Back/spine: no TTP thoracic or lumbar spine, ttp of lumbar left into left buttock Skin: No rashes or lesions noted Neuro: Patient oriented x3 Extremities: Normal to inspection [facility] Medical History (Updated 11/12/24 @ 11:27 by Zee Oquendo PA-C) Chest pain Anxiety Sinusitis Snoring Chest discomfort Positive Romberg test Numbness and tingling Asthma Family History Mother Asthma High blood pressure Diabetes Cancer Social History (Updated 10/15/24 @ 16:32 by Mary Fernandes CMA) Housing: Apartment Alcohol intake: current Patient Tobacco Use Status: Never used Tobacco e-Cigarette/Vaping Use: Never Used Second Hand Smoke Exposure: No service: No Current occupational status: employed 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 Current occupational exposures/hazards: No Cognitive needs: No Hearing needs: No Vision needs: No Review of Systems Const All systems reviewed & are unremarkable except as noted in HPI and below Physical Exam Vital Signs: Last Vital Signs Pulse 75 11/12/24 11:08 BP 118/80 11/12/24 11:08 Pulse Ox 100 11/12/24 11:08 Oxygen Delivery Method Room Air 11/12/24 11:08 Assessment & Plan Assessment & Plan (1) Lumbar sprain: Code(s): S33.5XXA - Sprain of ligaments of lumbar spine, initial encounter Qualifiers: Encounter type: initial encounter Qualified Code(s): S33.5XXA - Sprain of ligaments of lumbar spine, initial encounter Plan: The patient was diagnosed with a lumbar sprain and prescribed a course of oral prednisone, 40 mg daily for five days for anti-inflammatory purposes. I instructed her to take it in the morning to avoid sleep disruptions and advised against using additional NSAIDs like Aleve due to the risk of gastrointestinal bleeding. I recommended rest and limited physical activity to aid recovery, and provided a work note to excuse absence if needed. Instructed her on signs of complications, such as loss of bladder or bowel control, necessitating emergency care, emphasizing the need for prompt evaluation if such symptoms arise. Patient was informed and verbally consented to the use of an ambient scribe for clinic note documentation during this visit. Medications: New prednisone 40 mg (2 x 20 mg) PO QAM 10 tabs 0RF Coding Level of Care Code New Pt Level 3 (52443) Diagnoses Lumbar sprain, initial encounter S33.5XXA Encounter type: initial encounter
== END 2024-11-12 11:30 | disposition home or self-care (01) ==
PROVIDERS: PCP Physician Assistant Medical; Visit Provider Physician Assistant
DX: S33.5XXA Sprain of ligaments of lumbar spine, initial encounter (principal)

== ENCOUNTER → 2024-11-12 09:49 | Outpatient (BNVA) | payer OTHER, SELFPAY | PROVIDERS: PCP Physician Assistant Medical; Visit Provider Physician Assistant | DX: S33.5XXA Sprain of ligaments of lumbar spine, initial encounter (principal) | CPT/HCPCS: 99202 ==

== ENCOUNTER 2024-12-24 15:17 | Outpatient (AMB) | payer OTHER, SELFPAY ==
--- OUTSIDE RECORDS SUMMARY | 2024-12-24 15:22 | XMS_ITS | Encounter Summary ---
Author Organization [facility] Address [address] [place] [address] Care Team Providers Care Establishment Guide Name Role Phone Chris Zamarripa MD Primary Care Provider Ulisses Mullen MD Primary Care Provider Un available Encounter Details Date Type Department Care Team Description 06/30/2017 Release of Information Medical Records [address] [place] [address] Abstract, Provider Social History Tobacco Use Types Packs/Day Years Used Date Smoking Tobacco: Never Assessed Sex Assigned at Date Recorded Not on file documented as of this encounter Plan of Treatment Not on file documented as of this encounter Visit Diagnoses Not on filedocumented in this encounter Care Teams Establishment Guide Relationship Specialty Start Date End Date Chris Zamarripa MD PCP - General Internal Medicine 06/21/17 09/12/17 Ulisses Alvarez MD PCP - General Internal Medicine 09/13/17 documented as of this encounter
--- NOTE | 2024-12-24 15:27 | A.OFFPC_ITS ---
Vital Signs 12/24/24 15:32 Height 5 ft 5 in Weight 184 lb 4 oz BMI 30.7 BP 110/80 Blood Pressure Location Rt brachial Position Sitting Pulse 91 Pulse Source Pulse Oximeter Temp 98.6 F Temp Source Temporal Artery Scan Pulse Oximetry (%) 95 Oxygen Delivery Method Room Air Intake Visit Reasons: recheck pain/stress Intake Note: Tamia presents in the office today for a recheck of her pain/stress. Allergies No Known Allergies Allergy (Verified 12/24/24 15:29) Medication List - Last Reconciled 12/24/24 by JANES Young triamcinolone acetonide (Nasacort Allergy) 1 spray intranasal DAILY Tobacco use date assessed: 12/24/24 Dental Screening Dental Screen Date: 12/24/24 Did you have a dental visit in the last 12 months?: Yes Did you have a dental problem in the last 6 months where you did not have access to dental care?: No Was dental information given to patient?: Yes HPI HPI Comments History of Present Illness Details This is a 39-year-old female with no significant past medical history presenting for re-evaluation of paresthesias. She is accompanied by her daughter. 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 They both prefer that her daughter interpret, but the patient speaks and understands a lot of Nepali. She presented to the walk-in clinic on 08/13/2024 with concerns of left-sided body pain described as pins and needles accompanied by back pain. The symptoms began approximately 4 days prior to the onset of that visit with no identifiable incident or trauma. Symptoms were described as primarily on the left side spreading to the upper body and sometimes affecting the head and face. She had x-rays of the chest, neck and lower back which were essentially unremarkable aside from mild straightening of the cervical lordosis. When I saw her she endorsed paresthesias, numbness and discomfort in the left arm, left collarbone area and chest, left upper back, left lower back, left buttock and left upper thigh as well as the left side of the face and head. She was put on a trial of diclofenac and Zanaflex which helped a little with the pain in her neck. EKG was nonischemic. She had a normal echocardiogram and stress test. Labs including CBC with differential, CMP, vitamin B12, vitamin-D, folic acid, TSH, rheumatoid factor, ARNOL and Lyme negative/normal. She had trace leuks and 3-5 red blood cells in her urine explained by having menses at that time. She had an MRI of the brain without contrast on 10/08/2024 which demonstrated no acute abnormalities. There was polypoid mucosal thickening seen in the left maxillary sinus. The MRI was otherwise normal. She reported frequent snoring, and she was placed on Nasacort and refer to ENT. Then nasal spray has helped decrease snoring. Denies non restorative sleep and daytime fatigue. She is going to call ENT to schedule the appointment. We discussed her symptoms in the context of stress and anxiety. She endorses a lot of anxiety. She was referred to therapy, and she is still considering this. They did contact her to set up the appointment. She has been feeling better lately. Physically she says she feels fine now. All of the prior symptoms resolved. 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 She has no exposure to toxins at work. ROS: Constitutional: No unexplained weight loss, fever, chills, fatigue or night sweats. Eyes: No vision changes, blurry vision, double vision, eye pain, eye redness, eye discharge. ENT: No hearing loss, sneezing, congestion, runny nose or sore throat. No sinus pain. Respiratory: No shortness of breath, cough or sputum production. Cardiovascular: No chest pain, palpitations, pedal edema or exertional dyspnea. Gastrointestinal: No anorexia, nausea, vomiting or diarrhea. No abdominal pain or blood in stool. Genitourinary: No dysuria, hematuria, urinary frequency. Neurologic: No dizziness, syncope, unilateral weakness, ataxia, syncope, seizures, tremors, numbness, tingling. Musculoskeletal: No joint swelling/redness. Denies musculoskeletal pain. Hematologic/Lymphatics: No bleeding or bruising. No painful lymph nodes. Skin: No rash or itching. Endocrine: No cold or heat intolerance. No polyuria or polydipsia. Psychiatric: No depression. +anxiety Physical exam: Constitutional: Alert, in no distress. Head: Normocephalic. Neck: Supple, Full range of motion. No lymphadenopathy. No palpable thyroid masses. Respiratory: Clear to auscultation. Cardiovascular: S1 S2 regular. No murmurs. Musculoskeletal: No gross deformities. Normal range of motion. Strength 5/5 bilaterally. Extremities: Warm and well perfused. No clubbing, cyanosis or edema. 3+ peripheral pulses bilaterally. 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 Current occupational exposures/hazards: No Cognitive needs: No Hearing needs: No Vision needs: No Questionnaire PHQ-9 Over the last 2 weeks, how often have you been bothered by any of the following problems? 1. Little interest or pleasure in doing things: not at all 2. Feeling down, depressed, or hopeless: not at all 3. Trouble falling or staying asleep, or sleeping too much: not at all 4. Feeling tired or having little energy: several days 5. Poor appetite or overeating: not at all 6. Feeling bad about yourself - or that you are a failure or have let yourself or your family down: not at all 7. Trouble concentrating on things, such as reading the newspaper or watching television: not at all 8. Moving or speaking so slowly that other people could have noticed. Or the opposite - being so fidgety or restless that you have been moving around a lot more than usual: not at all 9. Thoughts that you would be better off or of hurting yourself in some way: not at all Total score: 1 Depression Screening Interpretation: Negative Depression Screening Done: Yes [id number] - PHQ-9 Billing: Patient declined-do not bill Source: Developed by Drs. Terrance Newton, Adeline Park, Erick Ramírez and colleagues, with an educational gely from [employer]. Thrive Questionnaire Date Thrive assessed: 12/24/24 I am a: Patient What is your living situation today?: I have a steady place to live Within the past 12 months, did the food you bought not last and you didn't have the money to get more?: Never true Within the past 12 months, did you worry whether your food would run out before you got money to buy more?: Never true Do you have trouble paying for medicines?: No Do you have trouble getting transportation to medical appointments?: No Do you have trouble paying your heating and electricity bill?: No Do you have trouble taking care of your child, family member or friend?: No Do you have trouble with day-to-day activities such as bathing, preparing meals, shopping, managing finances, etc.?: No Are you currently unemployed and looking for a job?: No Are you interested in more education?: I choose not to answer this question Please select the resources that you would like help with: None Currently or been in a relationship where the following occur: No concerns reported THRIVE Score: 0 AUDIT C Alcohol Use Questionnaire (AUDIT-C) 1. How often do you have a drink containing alcohol?: Monthly or less 2. How many drinks containing alcohol do you have on a typical day when you are drinking?: 1 or 2 3. How often do you have six or more drinks on one occasion?: Never Total Score: 1 Score Reviewed/Action Taken: No RADHA-7 AMB Questionnaire RADHA-7 Date RADHA - 7 assessed: 08/23/24 Source: Developed by Drs. Terrance Newton, Adeline Park, Erick Ramírez and colleagues, with an educational gely from [employer]. Physical exam (Primary Care) Vital Signs: Last Vital Signs Temp 98.6 F 12/24/24 15:32 Pulse 91 12/24/24 15:32 BP 110/80 12/24/24 15:32 Pulse Ox 95 12/24/24 15:32 Oxygen Delivery Method Room Air 12/24/24 15:32 BMI result Body Mass Index 30.7 Tobacco/Smoking Status: Tobacco use Status Tobacco use date assessed 12/24/24 12/24/24 15:30 Patient Tobacco Use Status Never used Tobacco 12/24/24 15:30 e-Cigarette/Vaping Use Never Used 12/24/24 15:30 PHQ-9: PHQ-9 Score PHQ-9: Total score 1 12/24/24 15:35 Depression Screening Interpretation: Negative Thrive Assessment: Date of Thrive Assessment Date Thrive assessed 12/24/24 12/24/24 15:30 Currently or been in a relationship where the following occur: No concerns reported Coding Level of Care Code Est Pt Level 4 (26023) Complex EM visit Add On G2211 Diagnoses Numbness and tingling R20.0; R20.2 Chest discomfort R07.89 Snoring R06.83 Anxiety F41.9 Assessment & Plan Assessment & Plan (1) Numbness and tingling: Code(s): R20.0 - Anesthesia of skin; R20.2 - Paresthesia of skin Category: Medical (2) Chest discomfort: Code(s): R07.89 - Other chest pain Category: Medical (3) Snoring: Code(s): R06.83 - Snoring Category: Medical (4) Anxiety: Code(s): F41.9 - Anxiety disorder, unspecified Category: Medical Plan Her workup was reassuring, and her symptoms subsequently resolved. I suspect this may have been due to stress and anxiety. She was contacted by behavioral health, and she will consider setting up an appointment for therapy. She is not interested in medication for anxiety. Patient also brings up that she tries to control what she eats because it makes her anxious that she could gain weight. She has actually lost weight since her visit in October. We reviewed nutrition today, and she agrees to referral to the dietitian. I strongly encouraged her to follow up with a therapist. She will continue Nasacort and try to avoid sleeping supine. She will call ENT to schedule the appointment. Follow up in 6 months for a physical exam or sooner as needed. Orders: Referrals Nutrition/Dietitian Referral E66.811 - Obesity, class 1 Medications: New triamcinolone acetonide (Nasacort Allergy) administer into each nostril 1 spray intranasal DAILY 16.9 mL 5RF
[2024-12-24 15:32] VITALS: BP 110/80; PULSE 91; TEMP 37; O2SAT 95; BMI 30.7
== END 2024-12-24 16:02 | disposition home or self-care (01) ==
LOC: HO.HMCFM 15:18
PROVIDERS: PCP Physician Assistant Medical; Visit Provider Physician Assistant Medical
DX: R20.0 Anesthesia of skin (principal); R20.2 Paresthesia of skin; R07.89 Other chest pain; R06.83 Snoring; F41.9 Anxiety disorder, unspecified

== ENCOUNTER → 2024-12-24 15:17 | Outpatient (BNVA) | payer OTHER, SELFPAY | PROVIDERS: PCP Physician Assistant Medical; Visit Provider Physician Assistant Medical | DX: R20.0 Anesthesia of skin (principal); R20.2 Paresthesia of skin; R07.89 Other chest pain; F41.9 Anxiety disorder, unspecified | CPT/HCPCS: 99212 ==

== ENCOUNTER 2025-02-13 09:36 | Outpatient (AMB) | payer OTHER, SELFPAY ==
--- NOTE | 2025-02-13 09:52 | MHC.AMNUTRGE ---
VS Expanded 02/13/25 09:54 02/13/25 10:07 Height 5 ft 5 in 5 ft 5 in Weight 185 lb 10.067 oz 186 lb BMI 30.9 30.9 Intake Visit Reasons: Obesity, class 1 Allergies No Known Allergies Allergy (Verified 12/24/24 15:29) Nutrition Presentation Details: PT presents for MNT for obesity food frequency fruits: 1/wk fish: 2x/wk milk: not including , cheese 1-2x/wk mvi: not taking Has 3 meals/day home made , choosing high protein foods vomiting /diarrhea: denies constipation: reports hx chronic constipation physical activity: currently increasing steps working on reaching [id number] steps/d etoh/smoking - denies DNR-Jldppct-Fv.Jeor Equation Height: 5 ft 5 in Weight: 186 lb Resting Metabolic Rate: 1526.75 Calculated Activity Level: Sedentary Calories Needed to Maintain Weight: 1832.10 Diagnosis Nutrition problem #1: overweight/obesity As related to (etiology) #1: diagnosis As evidenced by (sign/symptom) #1: high BMI (31 on 03/08) Monitoring/Goals Nutrition problem monitoring: level of knowledge/skill and oral fluids Nutrition goal/outcome: list 3 high fiber foods Learning/Education Stages of change: preparation [facility] Medical History (Updated 02/28/25 @ 11:13 by Tamy Liu, RD, LDN) Chest pain Anxiety Sinusitis Snoring Chest discomfort Positive Romberg test Numbness and tingling Asthma Family History Mother Asthma High blood pressure Diabetes Cancer Social History (Updated 12/24/24 @ 15:30 by Beth Schultz MA) Housing: Apartment Alcohol intake: current Patient Tobacco Use Status: Never used Tobacco e-Cigarette/Vaping Use: Never Used Second Hand Smoke Exposure: No service: No Current occupational status: employed 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 [employer] Current occupational exposures/hazards: No Cognitive needs: No Hearing needs: No Vision needs: No Assessment & Plan Assessment & Plan (1) Obesity (BMI 30.0-34.9): Code(s): E66.811 - Obesity, class 1 Category: Medical Plan: Wt: 85 Kg ( 03/08 ) Est kcal needs as per MSJ: 1800 (40% carb, 30% protein/fat) Est fluid needs as per 25-30 ml/d: 2600 Est prot per day as per 1 g/kg bw: 85 Recommend fiber intake : 8-10 g per day and gradually increase to 25-28 g per day for women and 35-38 g for men or as tolerated Recommend sodium intake per day : less than 2300 mg Educated patient on: ( R = reviewed V = verbalizes understanding N/R = needs review N/A = not applicable Food sources of carbohydrate, adequate serving sizes and its role in various health conditions: R Differences between complex carbohydrates a simple carbohydrates, role of fiber in diet: R Lean protein sources of foods: R Hydration: R Differences between types of fats and role in diet (mono on saturated fat fatty acids, saturated fatty acids, trans fats): R V N/R Food sources of sodium in salt and healthy modifications for heart health in kidney health: R V R/V Vitamins and minerals: R V N/R Healthy plate method concept: R V N/R Physical activity: Benefits a precaution: R V N/R Patient Instructions: Have 4-6 oz of prune juice daily work on having 3 balanced meals per day incorporating whole grain foods/fiber rich foods , total carb per meal less than 60 g following healthy plate method - see meal ideas Walk for relaxation ,goal 30-40 minutes at least 3 times a week discuss constipation with your primary physician for further evaluation Coding Level of Care Code Nutr Indiv Intake (77817) Diagnoses Obesity (BMI 30.0-34.9) E66.811 Time Spent (min) 30
[2025-02-13 09:54] VITALS: BMI 30.9
[2025-02-28 11:17] VITALS: BMI 30.9
== END 2025-02-13 10:27 | disposition home or self-care (01) ==
LOC: HO.ENCR 09:37
PROVIDERS: PCP Physician Assistant Medical; Visit Provider Dietitian, Registered
DX: E66.811 Obesity, class 1 (principal)

== ENCOUNTER → 2025-02-13 09:36 | Outpatient (BNVA) | payer OTHER, SELFPAY | PROVIDERS: PCP Physician Assistant Medical; Visit Provider Dietitian, Registered | DX: E66.811 Obesity, class 1 (principal); Z68.30 Body mass index [BMI] 30.0-30.9, adult | CPT/HCPCS: 97802 ==

== ENCOUNTER 2025-03-12 09:00 | Outpatient (AMB) | payer OTHER, SELFPAY ==
--- NOTE | 2025-03-12 09:02 | A.OFFPC_ITS ---
Vital Signs 3 03/12/25 09:05 Height 5 ft 5 in Weight 182 lb 8 oz BMI 30.4 BP 99/68 Blood Pressure Location Lt brachial Position Sitting Respiration 12 Pulse 68 Pulse Source Pulse Oximeter Temp 97.2 F Temp Source Oral Pulse Oximetry (%) 98 Oxygen Delivery Method Room Air Intake Visit Reasons: lump in breast, pt of DL Intake Note: Patient c/o right breast bump and painful notice it . Station Agent Required: No Allergies No Known Allergies Allergy (Verified 03/12/25 09:12) Medication List - Last Reconciled 03/12/25 by Vicki Juan, ASSIGNMENT DESK EDITOR- triamcinolone acetonide (Nasacort Allergy) 1 spray intranasal DAILY Tobacco use date assessed: 03/12/25 Dental Screening Dental Screen Date: 03/12/25 Did you have a dental visit in the last 12 months?: Yes Did you have a dental problem in the last 6 months where you did not have access to dental care?: No Was dental information given to patient?: Patient has dentist HPI HPI Comments 2 History of Present Illness0 Details History of Present Illness - The patient is a 39-year-old female wi th obesity and anxiety presenting with dtr today w/ a breast complaint. - Lump in right breast noted on Tuesday after feeling cramps in bilat breasts. - Initial lump size varies; initially la rger, currently smaller. - No pain currently present. - No drainage reported. - Family history negative for breast can cer. - Denies personal history of breast ca. Review of Systems - Breast: Reports lump in right breast, fluctuating size; denies drainage or discharge. - Denies fever, chills, systemic sx. - Admits anxiety about health. Discussion Notes I discussed with the patient a diagnostic mammogram for both breasts,along w/ US imaging. I explained the urgency of scheduling this diagnostic imaging and advised using the services of [facility] to expedite scheduling. I informed that the results would be communicated to both the patient and her primary care provider, JANES Emanuel. Assessment and Plan 1. Breast lump bilat - Dx Mammo bilat with LT US bilat - Monitor for changes; follow-up with pr [facility] care provider. - I will fu with her once results are ba ck. Patient Instructions - Schedule your diagnostic mammogram [facility] as soon as possible. - Attend the ultrasound appointment for further evaluation. - Monitor the lump for any changes in si ze or new symptoms. - Follow up with your primary care provi carlyn for results and next steps. Consent Patient was informed and verbally consented to the use of an ambient scribe for clinic note documentation during this visit. Total time spent caring for the patient today was 30 minutes. This includes time spent before the visit reviewing the chart, time spent during the visit, and time spent after the visit on documentation, reviewing laboratory results, diagnostic imaging, medications, performing a medically necessary evaluation, counseling on diagnoses, care coordination, ordering appropriate tests, ordering appropriate medications, review of tests performed by other providers, reporting test results with the patient, communication with other healthcare providers. 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 [employer] Current occupational exposures/hazards: No Cognitive needs: No Hearing needs: No Vision needs: No Questionnaire Thrive Questionnaire Date Thrive assessed: 08/23/24 I am a: Patient What is your living situation today?: I have a steady place to live Within the past 12 months, did the food you bought not last and you didn't have the money to get more?: Never true Within the past 12 months, did you worry whether your food would run out before you got money to buy more?: Never true Do you have trouble paying for medicines?: No Do you have trouble getting transportation to medical appointments?: No Do you have trouble paying your heating and electricity bill?: No Do you have trouble taking care of your child, family member or friend?: No Do you have trouble with day-to-day activities such as bathing, preparing meals, shopping, managing finances, etc.?: No Are you currently unemployed and looking for a job?: No Are you interested in more education?: I choose not to answer this question Please select the resources that you would like help with: None Currently or been in a relationship where the following occur: No concerns reported THRIVE Score: 0 RAHDA-7 AMB Questionnaire RADHA-7 Date RADHA - 7 assessed: 08/23/24 Source: Developed by Drs. Terrance Newton, Adeline Park, Erick Ramírez and colleagues, with an educational gely from [employer]. Physical exam (Primary Care) Vital Signs: Last Vital Signs Temp 97.2 F 03/12/25 09:05 Pulse 68 03/12/25 09:05 Resp 12 03/12/25 09:05 BP 99/68 03/12/25 09:05 Pulse Ox 98 03/12/25 09:05 Oxygen Delivery Method Room Air 03/12/25 09:05 BMI result Body Mass Index 30.4 BMI Assessment/Plan discussion: High BMI High, discussed plan: lifestyle Tobacco/Smoking Status: Tobacco use Status Tobacco use date assessed 03/12/25 03/12/25 09:07 Patient Tobacco Use Status Never used Tobacco 03/12/25 09:07 e-Cigarette/Vaping Use Never Used 03/12/25 09:07 Thrive Assessment: Date of Thrive Assessment Date Thrive assessed 08/23/24 03/12/25 09:07 Currently or been in a relationship where the following occur: No concerns reported Chest Chest/axillae images: 2 1. RIGHT LIQ 5OCLOCK PROXIMAL TO AREOLA IS A PALPABLE LUMP, ? FIBROGLANDULAR TISSUE SKIN NORMAL,NIPPLE NORMAL 2. LEFT LIQ 7OCLOCK PROXIMAL TO AREOLA IS A FIRM PALPABLE LUMP SKIN NORMAL, NIPPLE NORMAL Coding Level of Care Code Est Pt Level 4 (98397) Complex EM visit Add On G2211 Diagnoses Bilateral breast lump N63.10; N63.20 Obesity (BMI 30.0-34.9) E66.811 Anxiety F41.9 Assessment & Plan Assessment & Plan (1) Bilateral breast lump: Code(s): N63.10 - Unspecified lump in the right breast, unspecified quadrant; N63.20 - Unspecified lump in the left breast, unspecified quadrant Category: Medical (2) Obesity (BMI 30.0-34.9): Code(s): E66.811 - Obesity, class 1 Category: Medical (3) Anxiety: Code(s): F41.9 - Anxiety disorder, unspecified Category: Medical Plan . Orders: Orders 2 MM diagnostic mammo BI Today N63.10 - Unspecified lump in the right breast, unspecified quadrant, N63.20 - Unspecified lump in the left breast, unspecified quadrant US breast LT limited Today N63.10 - Unspecified lump in the right breast, unspecified quadrant, N63.20 - Unspecified lump in the left breast, unspecified quadrant US breast RT limited Today N63.10 - Unspecified lump in the right breast, unspecified quadrant, N63.20 - Unspecified lump in the left breast, unspecified quadrant
[2025-03-12 09:05] VITALS: BP 99/68; PULSE 68; RESP 12; TEMP 36.2; O2SAT 98; BMI 30.4
== END 2025-03-12 09:23 | disposition home or self-care (01) ==
LOC: HO.HMCFM 09:01
PROVIDERS: PCP Physician Assistant Medical; Visit Provider Nurse Practitioner Family
DX: N63.14 Unspecified lump in the right breast, lower inner quadrant (principal); N63.24 Unspecified lump in the left breast, lower inner quadrant; E66.811 Obesity, class 1; Z68.30 Body mass index [BMI] 30.0-30.9, adult; F41.9 Anxiety disorder, unspecified

== ENCOUNTER → 2025-03-12 09:00 | Outpatient (BNVA) | payer OTHER, SELFPAY | PROVIDERS: PCP Physician Assistant Medical; Visit Provider Nurse Practitioner Family | DX: N63.14 Unspecified lump in the right breast, lower inner quadrant (principal); N63.24 Unspecified lump in the left breast, lower inner quadrant; E66.811 Obesity, class 1; Z68.30 Body mass index [BMI] 30.0-30.9, adult; F41.9 Anxiety disorder, unspecified | CPT/HCPCS: 99212 ==

== ENCOUNTER → 2025-03-19 07:30 | Outpatient (BNV) | payer OTHER, SELFPAY | PROVIDERS: PCP Nurse Practitioner Family; Visit Provider Radiology Body Imaging | DX: N63.13 Unspecified lump in the right breast, lower outer quadrant (principal); N63.23 Unspecified lump in the left breast, lower outer quadrant | CPT/HCPCS: 76642; 77062; 77066 ==

== ENCOUNTER 2025-03-19 07:31 | Outpatient (REF) | payer OTHER, SELFPAY ==
--- NOTE | ~2025-03-19 | MM_ITS ---
EXAMINATIONS: 1. MM DIAGNOSTIC DIGITAL BREAST TOMOSYNTHESIS, BILATERAL 2. US BREAST LIMITED BILATERAL CLINICAL INFORMATION: Bilateral breast lumps, right at 5:00 and left at 7:00. COMPARISON: None. This is a baseline study. TECHNIQUE: Digital breast tomosynthesis is performed in both the craniocaudal and mediolateral oblique views along with computer-aided detection (CAD). Synthesized 2D images are generated from the tomosynthesis. Skin BB markers were placed in the lower inner quadrant of each breast, indicating the location of the palpable concern per patient. FINDINGS: BREAST COMPOSITION: The breasts are extremely dense, which lowers the sensitivity of mammography (ACR BI-RADS breast composition Category d). RIGHT BREAST: No significant masses, suspicious calcifications or other abnormalities are seen. In particular, no suspicious sonographic findings adjacent to the skin marker placed in the lower inner quadrant. Targeted ultrasound of the right breast was performed at the location of the palpable concern as indicated by the patient. Note that the location of the skin BB marker and the location of the palpable concern indicated by the patient when patient is a supine position is located at approximately 7 o'clock position 2 cm from the nipple; survey did not reveal suspicious sonographic findings. LEFT BREAST: -Approximately 1.5 cm oval mass in the outer quadrant at about 4 cm from the nipple (MLO 30/78, CC 31/71). -No significant masses, suspicious calcifications or other abnormalities are seen. - In particular, no suspicious mammographic findings adjacent to the skin BB marker. Targeted ultrasound of the left breast was performed at the following locations: -At the location of the mammographic finding. This survey shows a 1.5 x 0.9 x 1.5 cm simple cyst at 1 o'clock position 3 cm from the nipple. No abnormal vascularity demonstrated with color Doppler evaluation. -At the location of the palpable concern. The survey shows a 0.9 x 0.5 x 0.9 cm hypoechoic oval lesion that could represent a solid mass or complicated cyst with hypoechoic content at 7 o'clock position at 2 cm from the nipple. MM/MM tomosynthesis diagnostic BI IMPRESSION: RIGHT BREAST: Negative, no evidence of malignancy. In particular, no sonographic or mammographic finding to account for patient's palpable concern. Clinical follow-up is recommended, independent of imaging findings. Otherwise, patient may return to routine mammogram at age of [age] years old. LEFT BREAST: - Palpable 0.9 cm hypoechoic oval lesion that could represent solid mass or complicated cyst at 7:00 2 cm from the nipple. Probably benign. A 6-month follow-up ultrasound is recommended. -Simple cyst at the 1:00 3 cm from the nipple. Benign finding. No dedicated imaging follow-up required. ASSESSMENT: BI-RADS 3 - Probably benign finding(s) - 6 month follow-up suggested RECOMMENDATION: 6 Month F/U Results were provided to the patient at time of visit by the technologist. This patient's information was entered into a reminder system with a target due date for their next mammogram. Electronically signed by: Anish Gillis MD 03/19/2025 08:51 AM EDT
== END 2025-03-19 07:32 | disposition home or self-care (01) ==
LOC: HO.MAMMO 07:31
PROVIDERS: PCP Nurse Practitioner Family; Visit Provider Nurse Practitioner Family
DX: N63.14 Unspecified lump in the right breast, lower inner quadrant (principal); N63.24 Unspecified lump in the left breast, lower inner quadrant; Z12.31 Encounter for screening mammogram for malignant neoplasm of breast
CPT/HCPCS: 76642; 77062; 77066

== ENCOUNTER 2025-05-10 11:21 | Outpatient (AMB) | payer OTHER, SELFPAY ==
--- NOTE | 2025-05-10 11:25 | MHC.OFFVIS ---
Vital Signs 05/10/25 11:35 Height 5 ft 5 in Weight 186 lb BMI 30.9 BP 131/70 Blood Pressure Location Lt brachial Position Sitting Pulse 85 Intake Visit Reasons: masses in breast Intake Note: Patient is seen in office for evaluation of a mass of the breast. 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 The patient reports noting the lumps on self-examination, both located near the nipple region. On the right side the lump was initially quite large but has now regressed to the point where she is no longer able to feel the lump. This was located in the 05:00 location in the subareolar region. In the left breast the lump continues to be palpable in his noted in the 7 o'clock position approximately 2 cm from the nipple. She denies any pain or skin changes associated with this lump. The lump has not changed significantly since 1st being identified. She did undergo her 1st diagnostic mammogram on 03/19/2025. This did confirm a lesion in the left breast corresponding to the palpable density but no significant changes in the right breast. Both breasts were considered very dense (category D). Subsequent ultrasound in both the right and left breast was performed. In the right breast no suspicious findings were identified in the area of palpable abnormality. In the left breast however there was a possible complex cyst or solid density in the 7 o'clock position 2 cm from the nipple corresponding to the palpable nodule. A 2nd simple cyst was noted in the 2 o'clock position approximately 5 cm from the nipple. The left breast was considered low suspicion for malignancy and a repeat ultrasound recommended in 6 months. This has been scheduled at the [facility] on 09/25/2025. She denies any previous history of breast problems or breast surgery. Her family history is negative for breast cancer or ovarian cancer. Menarche was at the age of 13. She is 3 para 3 and had her 1st child at 17. 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 [employer] Current occupational exposures/hazards: No Cognitive needs: No Hearing needs: No Vision needs: No Female Reproductive History Menstrual Age of Menarche: 13 Date of last menstrual period: 04/18/25 Total pregnancies: 3 Number of Living Children: 3 Review of Systems Const All systems reviewed & are unremarkable except as noted in HPI and below Physical Exam Const General: cooperative and no acute distress Nutritional Appearance: well nourished Orientation/consciousness: patient oriented x3 Limitations: no limitations HEENT Head: Yes normocephalic and Yes atraumatic Ears: hearing grossly normal bilaterally Chest Other: Right breast: No palpable mass, no skin change, no nipple retraction, no nipple discharge, no enlarged lymph nodes Left breast: Palpable mass as noted below. No skin changes, no nipple retraction, no nipple discharge, no enlarged lymph nodes. Chest/axillae images:  1. Pea sized palpable breast mass 07:00 left breast, mobile within the breast tissue, superficial, no skin change. No other palpable mass in the left breast Resp Effort & Inspection: normal respiratory effort, no audible wheezes, no cough and no respiratory distress Cardio Jugular venous distension: no JVD GI Inspection: Yes normal to inspection Skin Other: Warm, dry, no rash Neuro General: patient oriented x3 Extrem General: Yes no clubbing, cyanosis or edema Assessment & Plan Assessment & Plan (1) Bilateral breast lump: Code(s): N63.10 - Unspecified lump in the right breast, unspecified quadrant; N63.20 - Unspecified lump in the left breast, unspecified quadrant Category: Medical (2) Abnormal mammogram of both breasts: Code(s): R92.8 - Other abnormal and inconclusive findings on diagnostic imaging of breast Category: Medical (3) Dense breast tissue: Code(s): R92.30 - Dense breasts, unspecified Category: Medical Plan 39-year-old female patient with an average risk for breast cancer presenting with bilateral palpable breast masses noted on a recent self-examination. This was confirmed on physical examination. Subsequent workup with mammogram and ultrasound confirmed a density in the left breast at the 7 o'clock position 2 cm from the nipple felt to be low suspicion for malignancy. A repeat ultrasound has been scheduled for 09/25/2025. On examination today no palpable masses noted on the right side however a palpable nodule is confirmed on the left side at the 7 o'clock position corresponding to the mammographic and ultrasound findings. No other suspicious findings are noted on examination. I recommended continued observation with follow-up examination after the next ultrasound. If there was evidence growth of this left breast 07:00 lesion, ultrasound-guided core biopsy may be warranted. She will follow up after the ultrasound to review the results. She is welcome to call sooner for any new concerns. Coding Level of Care Code New Pt Level 4 (53999) Diagnoses Bilateral breast lump N63.10; N63.20 Abnormal mammogram of both breasts R92.8 Dense breast tissue R92.30
[2025-05-10 11:35] VITALS: BP 131/70; PULSE 85; BMI 30.9
== END 2025-05-10 11:52 | disposition home or self-care (01) ==
LOC: HO.HGS 11:22
PROVIDERS: PCP Nurse Practitioner Family; Visit Provider Surgery
DX: N63.10 Unspecified lump in the right breast, unspecified quadrant (principal); N63.20 Unspecified lump in the left breast, unspecified quadrant; R92.8 Other abnormal and inconclusive findings on diagnostic imaging of breast; R92.30 Dense breasts, unspecified
CPT/HCPCS: 99204

== ENCOUNTER → 2025-05-10 11:21 | Outpatient (BNVA) | payer OTHER, SELFPAY | PROVIDERS: PCP Nurse Practitioner Family; Visit Provider Surgery | DX: N63.10 Unspecified lump in the right breast, unspecified quadrant (principal); N63.20 Unspecified lump in the left breast, unspecified quadrant; R92.8 Other abnormal and inconclusive findings on diagnostic imaging of breast; R92.30 Dense breasts, unspecified | CPT/HCPCS: 99202 ==

== ENCOUNTER 2025-06-20 08:22 | Outpatient (AMB) | payer OTHER, SELFPAY ==
--- NOTE | 2025-06-20 08:28 | MHC.PC.OV ---
Vital Signs 06/20/25 08:35 Height 5 ft 5 in Weight 185 lb BMI 30.8 BP 118/70 Blood Pressure Location Rt brachial Position Sitting Respiration 13 Pulse 77 Pulse Source Pulse Oximeter Temp 97.6 F Temp Source Temporal Artery Scan Pulse Oximetry (%) 98 Oxygen Delivery Method Room Air Intake Visit Reasons: annual physical exam Intake Note: Tamia presents in the office today for her annual physical. Allergies No Known Allergies Allergy (Verified 06/20/25 08:34) Medication List - Last Reconciled 06/20/25 by JANES Young triamcinolone acetonide (Nasacort Allergy) 1 spray intranasal DAILY Tobacco use date assessed: 06/20/25 Dental Screening Dental Screen Date: 06/20/25 Did you have a dental visit in the last 12 months?: Yes Did you have a dental problem in the last 6 months where you did not have access to dental care?: No Was dental information given to patient?: Patient has dentist HPI HPI Comments History of Present Illness Details This is a 39-year-old female with a past medical history of neck pain and dense breast tissue presenting for an annual physical exam. Patient endorses left mid back pain since yesterday at work. She was doing repetitive twisting movements. This has happened to her in the past. She started taking Flexeril which has helped a little. When she is sitting the pain is mild, but if she twists or bends the pain is severe. It is described as aching and soreness. Her exam is consistent with a musculoskeletal strain. She will treat with [id number] analgesia, alternate with heat and ice and rest. I provided her with a letter to be out from work today, and she will call if symptoms do not improve by Tuesday. The patient underwent breast ultrasound and mammogram in March of 2025. She had a follow up with breast surgery on 02/01/2025. Patient was noted to be at average risk for breast cancer with bilateral palpable breast masses on a recent self examination. It was confirmed on physical examination. Subsequent workup with mammogram and ultrasound confirmed a density in the left breast at 07:00 2 cm from the nipple felt to be low suspicion for malignancy. Repeat ultrasound has been scheduled for September 2025. It was noted that she had a left sided 7 o'clock position mass on physical exam at that appointment, and recommended continued observation until follow up examination with ultrasound was recommended. OBGYN: per patient UTD. Colon cancer screening: Early screening not warranted based on history. Dental exam is UTD. She will schedule eye exam. She is working on weight loss by following a healthy diet. She is going to incorporate exercise. She snores very loudly, and she endorses daytime somnolence. She gets about 6-8 hours of sleep nightly. She does not feel well rested in the morning. I have ordered a sleep study for evaluation. She is a light alcohol drinker. Only drinks socially a couple of times per month. ROS: Constitutional: No unexplained weight loss, fever, chills, fatigue or night sweats. Eyes: No vision changes, blurry vision, double vision, eye pain, eye redness, eye discharge. ENT: No hearing loss, sneezing, congestion, runny nose or sore throat. Respiratory: No shortness of breath, cough or sputum production. Cardiovascular: No chest pain, chest pressure or chest discomfort. No palpitations or pedal edema. Gastrointestinal: No anorexia, nausea, vomiting or diarrhea. No abdominal pain or blood in stool. Genitourinary: No dysuria, hematuria, urinary frequency. Neurologic: No headache, dizziness, syncope, unilateral weakness, ataxia, numbness or tingling in the extremities. Musculoskeletal: See HPI Hematologic/Lymphatics: No bleeding or bruising. No painful lymph nodes. Skin: No rash or itching. Endocrine: No cold or heat intolerance. No polyuria or polydipsia. Psychiatric: No depression, SI or HI. Her stress and anxiety are a lot better lately. Physical exam: Constitutional: Alert, in no distress. Head: Normocephalic. Eyes: Pupils are equal, round and reactive to light. Extraocular muscles intact. Ear, Nose and Throat: Canals clear. TMs normal. Normal nasal mucosa. No nasal discharge. No oral lesions. Neck: Supple, Full range of motion. No lymphadenopathy. No palpable thyroid masses. Respiratory: Clear to auscultation. Cardiovascular: S1 S2 regular. No murmurs. Gastrointestinal: Abdomen soft, non-tender, non-distended. Normal bowel sounds. No palpable masses. Genitourinary: No costovertebral angle tenderness. Neurologic: No focal neurological deficits. Symmetric patellar reflexes. Moves all extremities spontaneously. Sensation intact bilaterally. Skin: No rashes or lesions. Musculoskeletal: No midline spinal tenderness. Full range of motion of the spine. Paraspinal muscles nontender. She has left mid back pain with twisting and flexion. Extremities: Warm and well perfused. No clubbing, cyanosis or edema. Intact peripheral pulses bilaterally Psychiatric: Normal mood and affect ON LICENSE OF [facility] Medical History (Updated 06/20/25 @ 08:51 by JANES Young) Daytime somnolence Screening for cardiovascular condition Routine physical examination Chest pain Anxiety Sinusitis Snoring Chest discomfort Positive Romberg test Numbness and tingling Asthma Surgical History Hx of tonsillectomy History of 3 sections Family History Mother Asthma High blood pressure Diabetes Cancer Social History (Updated 06/20/25 @ 08:35 by Beth Schultz CMA) Housing: Apartment Alcohol intake: current Patient Tobacco Use Status: Never used Tobacco e-Cigarette/Vaping Use: Never Used Second Hand Smoke Exposure: No service: No Current occupational status: employed 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 [employer] Current occupational exposures/hazards: No Cognitive needs: No Hearing needs: No Vision needs: No Female Reproductive History Menstrual Age of Menarche: 13 Questionnaire Thrive Questionnaire Date Thrive assessed: 08/23/24 I am a: Patient What is your living situation today?: I have a steady place to live Within the past 12 months, did the food you bought not last and you didn't have the money to get more?: Never true Within the past 12 months, did you worry whether your food would run out before you got money to buy more?: Never true Do you have trouble paying for medicines?: No Do you have trouble getting transportation to medical appointments?: No Do you have trouble paying your heating and electricity bill?: No Do you have trouble taking care of your child, family member or friend?: No Do you have trouble with day-to-day activities such as bathing, preparing meals, shopping, managing finances, etc.?: No Are you currently unemployed and looking for a job?: No Are you interested in more education?: I choose not to answer this question Please select the resources that you would like help with: None Currently or been in a relationship where the following occur: No concerns reported THRIVE Score: 0 RADHA-7 AMB Questionnaire RADHA-7 Date RADHA - 7 assessed: 08/23/24 Source: Developed by Drs. Terrance Newton, Adeline Park, Erick Ramírez and colleagues, with an educational gely from [employer]. Physical exam (Primary Care) Vital Signs: Last Vital Signs Temp 97.6 F 06/20/25 08:35 Pulse 77 06/20/25 08:35 Resp 13 06/20/25 08:35 BP 118/70 06/20/25 08:35 Pulse Ox 98 06/20/25 08:35 Oxygen Delivery Method Room Air 06/20/25 08:35 BMI result Body Mass Index 30.8 Tobacco/Smoking Status: Tobacco use Status Tobacco use date assessed 06/20/25 06/20/25 08:40 Patient Tobacco Use Status Never used Tobacco 06/20/25 08:35 e-Cigarette/Vaping Use Never Used 06/20/25 08:35 Thrive Assessment: Date of Thrive Assessment Date Thrive assessed 08/23/24 06/20/25 08:30 Currently or been in a relationship where the following occur: No concerns reported Immunizations Boostrix Tdap 2.5 Lf unit-8 mcg-5 Lf/0.5 mL intramuscular syringe Performing Provider: JANES Young Performing Location: [facility] [facility] Administered by: Beth Schultz CMA on 06/20/25 09:17 Dose Route Admin Location Dispensed Lot Number Expiration Date [facility] Movie Producer 0.5 mL IM Left Deltoid 0.5 mL [id number] 07/12/27 72589-905-33 [employer] Total Dispensed Waste 0.5 mL 0 % VIS Given Date VIS Provided VIS Publication Date 06/20/25 Single Vaccine 21 Eligibility Eligibility Date Funding Source Not [facility] Eligible 06/20/25 Private Coding Level of Care Code Est Pt Prev Care 18-39y(51132) Diagnoses Routine physical examination Z00.00 Screening for cardiovascular condition Z13.6 Snoring R06.83 Daytime somnolence R40.0 Assessment & Plan Assessment & Plan (1) Routine physical examination: Code(s): Z00.00 - Encounter for general adult medical examination without abnormal findings Category: Medical (2) Screening for cardiovascular condition: Code(s): Z13.6 - Encounter for screening for cardiovascular disorders Category: Medical (3) Snoring: Code(s): R06.83 - Snoring Category: Medical (4) Daytime somnolence: Code(s): R40.0 - Somnolence Category: Medical Plan Patient is seen today for a routine physical. 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 Tdap administered. - Recommendation of an eye exam - Screening for substance abuse Schedule physical exam in 1 year. Orders: Orders Complete Blood Count no Diff Today Z00.00 - Encounter for general adult medical examination without abnormal findings, Z13.6 - Encounter for screening for cardiovascular disorders Basic Metabolic Panel Today Z00.00 - Encounter for general adult medical examination without abnormal findings, Z13.6 - Encounter for screening for cardiovascular disorders Lipid Panel Today Z00.00 - Encounter for general adult medical examination without abnormal findings, Z13.6 - Encounter for screening for cardiovascular disorders RT home sleep study Today R06.83 - Snoring, R40.0 - Somnolence TDaP Immunization Today Z23 - Encounter for immunization
[2025-06-20 08:35] VITALS: BP 118/70; PULSE 77; RESP 13; TEMP 36.4; O2SAT 98; BMI 30.8
--- OUTSIDE RECORDS SUMMARY | 2025-06-20 08:45 | XMS_ITS | Encounter Summary ---
Author Organization [facility] Address [address] [place] [address] Care Team Providers Care Retort Kiln Burner Name Role Phone Chris Zamarripa MD Primary Care Provider Ulisses Mullen MD Primary Care Provider Un available Encounter Details Date Type Department Care Team Description 06/30/2017 Release of Information Medical Records [address] [place] [address] Abstract, Provider Social History Tobacco Use Types Packs/Day Years Used Date Smoking Tobacco: Never Assessed Sex Assigned at Date Recorded Not on file documented as of this encounter Plan of Treatment Not on file documented as of this encounter Visit Diagnoses Not on filedocumented in this encounter Care Teams Retort Kiln Burner Relationship Specialty Start Date End Date Chris Zamarripa MD PCP - General Internal Medicine 06/21/17 09/12/17 Ulisses Alvarez MD PCP - General Internal Medicine 09/13/17 documented as of this encounter
== END 2025-06-20 09:17 | disposition home or self-care (01) ==
LOC: HO.HMCFM 08:23
PROVIDERS: PCP Physician Assistant Medical; Visit Provider Physician Assistant Medical
DX: Z00.00 Encounter for general adult medical examination without abnormal findings (principal); Z13.6 Encounter for screening for cardiovascular disorders; R06.83 Snoring; R40.0 Somnolence; Z23 Encounter for immunization

== ENCOUNTER 2025-06-20 08:22 | Outpatient (REF) | payer OTHER, SELFPAY ==
[2025-06-20 11:35] LABS: Hematocrit 36.7 % (37.0-47.0); Hemoglobin 11.8 g/dl (12.0-16.0); Mean Corpuscular HGB Conc 32.2 g/dl (31.0-35.0); Mean Corpuscular Hemoglobin 28.4 pg (27.0-33.0); Mean Corpuscular Volume 88.2 fL (80.0-98.0); NRBC Abs Auto 0.000 X10*3/uL (0.0-0.012); NRBC Pct Auto 0.0 /100WBC (0.0-0.2); Platelet Count 341 X10*3/uL (160-400); Red Blood Count 4.16 X10*6/uL (4.20-5.50); White Blood Count 5.8 X10*3/uL (4.8-10.8)
[2025-06-20 12:18] LABS: Anion Gap 10 (12-20); Blood Urea Nitrogen 11 mg/dL (9-16); Calcium 8.9 mg/dL (8.4-10.2); Carbon Dioxide 27 mmol/L (22-29); Chloride 109 mmol/L (96-108); Cholesterol 178 mg/dL (<200); Estimated Glomerular Filt Rate > 60; HDL Cholesterol 46 mg/dL (>40); Potassium 4.8 mmol/L (3.3-5.1); Sodium 141 mmol/L (135-145); Triglycerides 58 mg/dL (<150)
== END 2025-06-20 08:23 | disposition home or self-care (01) ==
LOC: HO.WFDLDS 08:22
PROVIDERS: PCP Physician Assistant Medical; Visit Provider Physician Assistant Medical
DX: Z00.00 Encounter for general adult medical examination without abnormal findings (principal); Z13.6 Encounter for screening for cardiovascular disorders; Z23 Encounter for immunization; R06.83 Snoring; R40.0 Somnolence; Z79.51 Long term (current) use of inhaled steroids
CPT/HCPCS: 36415; 80048; 80061; 85027; 90471; 90715; 99395

== ENCOUNTER 2025-07-17 10:28 | Outpatient (AMB) | payer OTHER, SELFPAY ==
[2025-07-17 10:33] VITALS: BP 120/82; PULSE 77; O2SAT 96; BMI 31.4
--- NOTE | 2025-07-17 10:33 | A.OFFVIS_ITS ---
Vital Signs 07/17/25 10:33 Height 5 ft 5 in Weight 189 lb BMI 31.4 BP 120/82 Blood Pressure Location Rt brachial Position Sitting Pulse 77 Pulse Source Pulse Oximeter Pulse Oximetry (%) 96 Oxygen Delivery Method Room Air Intake Visit Reasons: INP-Other sympt inv Nervous syst Intake Note: NPV internal referred by PCP Douglas for paresthesia of Lt arm - numbness and tingling Pe[employer] Required: No Accompanied by: Self / Same As Patient Allergies No Known Allergies Allergy (Verified 07/17/25 10:33) HPI Comments Details: 40y/o right handed female comes for evaluation of numbness and tingling in her left UE about 1 year ago. The symptoms were intermittent and involved her whole upper extremity -lasting 10 minutes.she has pain in her left posterior arm sometimes. she also has head ache - pressure in her left frontal and temporal regions. she feels the symptoms have improve din the past 1 year. No weakness . The headaches are once a week, with no nausea ,no photo or phonophobia.The pain can last the whole day. No difficulty walking or neck stiffness. 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 [employer] Current occupational exposures/hazards: No Cognitive needs: No Hearing needs: No Vision needs: No Female Reproductive History Menstrual Age of Menarche: 13 Physical Exam Vital Signs: Last Vital Signs Pulse 77 07/17/25 10:33 BP 120/82 07/17/25 10:33 Pulse Ox 96 07/17/25 10:33 Oxygen Delivery Method Room Air 07/17/25 10:33 BMI result Body Mass Index 31.4 Const General: cooperative, healthy appearing, comfortable, no acute distress and well developed Orientation/consciousness: oriented to person and patient oriented x3 Eyes Pupils: Equal, round and reactive pupils present Neuro Other: Tight neck muscles with restricted range of motion General: oriented to person, patient oriented x3, gait normal, tone normal, moves all extremities and no focal motor deficits Cranial nerves: Yes Facial sensation intact/muscles of mastication intact, Yes Equal, round and reactive pupils present, Yes Bilaterally intact EOM present, Yes Nystagmus not present, Yes Normal facial strength present and Yes Midline tongue present Cognition (Neuro): normal cognition Gait exam (Neuro): Normal gait present Motor exam (neuro): 5/5 motor strength present throughout, no tremor noted and Normal motor muscle tone present throughout Deep tendon reflexes (DTR's): Right triceps reflex intensity grade: 1+, Left triceps reflex intensity grade: 1+, Rt Biceps (C5, C6): 1+, Left biceps reflex intensity grade: 1+, Right brachioradialis reflex intensity grade: 1+, Left brachioradialis reflex intensity grade: 1+, Right patellar reflex intensity grade: 1+ and Left patellar reflex intensity grade: 1+ Coordination: [id number] test normal Results Reviewed Results Reviewed: MRI Brain - showed left maxillary sinusitis C spine X ray showed spasm Assessment & Plan Assessment & Plan (1) Arm paresthesia, left: Code(s): R20.2 - Paresthesia of skin Category: Medical (2) Daytime somnolence: Code(s): R40.0 - Somnolence Category: Medical (3) Snoring: Code(s): R06.83 - Snoring Category: Medical (4) Cervicalgia: Code(s): M54.2 - Cervicalgia Category: Medical Plan HST scheduled by PCP I will evaluate her with EMG NCS left UE PT for neck myofascial release Orders: Orders PT Evaluation and Treatment Today M54.2 - Cervicalgia NE nerve conduction velocity Today M54.2 - Cervicalgia, R20.2 - Paresthesia of skin NE electromyogram (EMG) Today R20.0 - Anesthesia of skin, R20.2 - Paresthesia of skin Coding Level of Care Code New Pt Level 4 (61162) Diagnoses Arm paresthesia, left R20.2 Daytime somnolence R40.0 Snoring R06.83 Cervicalgia M54.2
== END 2025-07-17 11:05 | disposition home or self-care (01) ==
LOC: HO.HSMS 10:29
PROVIDERS: PCP Physician Assistant Medical; Visit Provider Psychiatry & Neurology Neurology
DX: R20.2 Paresthesia of skin (principal); R40.0 Somnolence; R06.83 Snoring; M54.2 Cervicalgia
CPT/HCPCS: 99204

== ENCOUNTER → 2025-07-17 10:28 | Outpatient (BNVA) | payer OTHER, SELFPAY | PROVIDERS: PCP Physician Assistant Medical; Visit Provider Psychiatry & Neurology Neurology | DX: R20.0 Anesthesia of skin (principal); M54.2 Cervicalgia; R40.0 Somnolence; R06.83 Snoring | CPT/HCPCS: 99202 ==

== ENCOUNTER 2025-08-13 10:25 | Outpatient (REF) | payer OTHER, SELFPAY ==
--- NOTE | 2025-08-13 10:30 | EMG_ITS ---
Chief complaint: Left hand numbness and tingling Referred by: Eleuterio Ferrell MD Procedure done: NCS and EMG of left upper extremity Right median and ulnar motor studies were performed. Right median and ulnar mixed sensory, radial sensory and median and lateral antecubital brachial sensory studies were performed and needle examination was performed. Findings: No significant abnormality noted Impression: This study did not reveal any significant abnormality. There was no evidence of ulnar or median neuropathy. [place] [id number] [facility]
== END 2025-08-13 10:26 ==
LOC: HO.NEURO 10:25
PROVIDERS: PCP Physician Assistant Medical; Visit Provider Psychiatry & Neurology Neurology
DX: M54.2 Cervicalgia (principal); R20.2 Paresthesia of skin; R20.0 Anesthesia of skin
CPT/HCPCS: 95886; 95910

== ENCOUNTER → 2025-08-13 10:30 | Outpatient (BNV) | payer OTHER, SELFPAY | PROVIDERS: PCP Physician Assistant Medical; Visit Provider Psychiatry & Neurology Neurology | DX: R20.0 Anesthesia of skin (principal) | CPT/HCPCS: 95886; 95910 ==